=== PATIENT | female | born 1950 | race Caucasian/White ===

== ENCOUNTER → 2023-02-01 11:42 | Outpatient (CLI) | payer BC, SELFPAY ==
--- NOTE | ~2023-02-01 | US_ITS ---
Thyroid ultrasound. Clinical History: Thyroid nodule COMPARISON: 08/29/2018 Findings: Real-time sonography of the thyroid gland was performed. The right lobe measures 4.3 x 1.1 x 1.1 cm. The left lobe measures 4.3 x 1.4 x 1.0 cm. The isthmus is 3 mm in AP diameter. There is a 2 mm cystic nodule in the right thyroid lobe. There is a 1.8 x 1.0 x 1.4 cm hypoechoic circumscribed solid nodule at the left midpole. Impression: 1.8 cm TR-4 nodule in the left mid pole, increased in size since 08/29/2018. FNA recommended to establ kd a histologic diagnosis. Reviewed, dictated and finalized at location . Impression: 1.8 cm TR-4 nodule in the left mid pole, increased in size since 08/29/2018. FNA recommended to establish a histologic diagnosis.
== END ==
PROVIDERS: PCP Family Medicine; Visit Provider Nurse Practitioner Family
DX: E04.1 Nontoxic single thyroid nodule (principal)
CPT/HCPCS: 76536

== ENCOUNTER 2023-03-03 12:42 | Outpatient (CLI) | payer BC, SELFPAY ==
--- NOTE | ~2023-03-03 | US_ITS ---
EXAMINATION: US FNA w image guidance DATE: 03/03/2023 13:56 INDICATION: Left thyroid nodule TECHNIQUE: A time-out was performed to verify the patient's name, date of , and procedure to be performed . The procedure and its benefits and risks were discussed with the patient. Risks specifically discus sed included bleeding and infection. The patient understood the risks and agreed to proceed. The neck was prepped and draped in the usual sterile manner. 3 mL 1% lidocaine was used for local anesthesia . 6 passes were made with a 25G needle into the lesion. Appropriate needle location was documented with continuous sonographic guidance. A sterile bandage was applied. There were no immediate compli cations. FINDINGS: Grayscale ultrasound images demonstrate biopsy needles advanced into a 1.8 x 1.3 x 1.1 cm solid hypoe choic left thyroid nodule. IMPRESSION: 1. Successful ultrasound-guided fine needle aspiration of a 1.8 cm solid left thyroid nodule. Reviewed, dictated and finalized at location A.
== END 2023-03-03 12:43 | disposition home or self-care (01) ==
PROVIDERS: PCP Family Medicine; Visit Provider Nurse Practitioner Family
DX: E04.1 Nontoxic single thyroid nodule (principal)
CPT/HCPCS: 10005; 88173; 88305

== ENCOUNTER 2023-07-19 16:01 | Outpatient (CLI) | payer MEDICARE, SELFPAY ==
--- NOTE | ~2023-07-19 | XR_ITS ---
XR chest 2V DATE: 07/19/2023 16:29 INDICATION: Shortness of breath TECHNIQUE: PA and lateral views COMPARISON: None FINDINGS: Normal heart size. No hilar or mediastinal enlargement. No pulmonary infiltrate or consolid ation, pleural effusion or pulmonary vascular congestion or pneumothorax is detected. Mild thoracic aortic calcification and minimal unfolding. No hilar or mediastinal enlargement is evid ent. IMPRESSION: No active cardiopulmonary disease Aortic atherosclerosis Reviewed, dictated and finalized at location L. E SET UP OPERATOR
[2023-07-19 17:34] LABS: Basophils Absolute Auto 0.1 K/mm3 (0.0-0.1); Basophils Percent Auto 0.4 % (0.2-1.2); Eosinophils Absolute Auto 0.1 K/mm3 (0-0.3); Eosinophils Percent Auto 0.8 % (0-4.4); Hematocrit 46.7 % (37.0-47.0); Hemoglobin 15.2 g/dL (12.0-15.0); Immature Granulocyte Absolute 0.04 K/mm3 (0.00-0.031); Immature Granulocyte Percent A 0.3 % (0-0.5); Lymphocytes Absolute Auto 1.84 K/mm3 (0.9-3.2); Mean Corpuscular HGB Conc 32.5 g/dl (32-36); Mean Corpuscular Hemoglobin 30.2 pg (26-34); Mean Corpuscular Volume 92.8 fl (80-100); Mean Platelet Volume 11.1 fl (7.4-10.4); Monocytes Absolute Auto 1.1 K/mm3 (0.1-0.6); Monocytes Percent Auto 9.9 % (2.6-8.5); Neutrophils Absolute Auto 8.3 K/mm3 (1.3-6.7); Neutrophils Percent Auto 72.6 % (45.5-73.1); Platelet Count Result 192 k/mm3 (150-375); Red Blood Count 5.03 M/mm3 (4.2-5.4); Red Cell Distribution Width 12.5 % (11.5-14.5); White Blood Count 11.5 K/mm3 (4.5-10.0)
[2023-07-19 18:19] LABS: D Dimer 14.15 ug/mL (<0.48)
== END 2023-07-19 16:02 | disposition home or self-care (01) ==
PROVIDERS: PCP Family Medicine; Visit Provider Nurse Practitioner Family
DX: R06.02 Shortness of breath (principal); R00.0 Tachycardia, unspecified; I25.10 Atherosclerotic heart disease of native coronary artery without angina pectoris
CPT/HCPCS: 36415; 71046; 85025; 85380

== ENCOUNTER 2023-07-20 10:03 | Outpatient (CLI) | payer MEDICARE, SELFPAY ==
--- NOTE | ~2023-07-20 | CT_ITS ---
EXAMINATION: CTA chest PE protocol DATE: 07/20/2023 10:31 INDICATION: Shortness of breath TECHNIQUE: Computed tomography (CT) pulmonary angiogram of the chest was performed with 100 mL Omnipa que-350 intravenous contrast. Additional 3D reconstructions utilizing coronal maximum intensity proje ction (MIP) were performed. Automated exposure control and iterative reconstruction technique were em ployed. The dose-length product was 536.33 mGy-cm. COMPARISON: None FINDINGS: Central filling defect in the right main pulmonary artery which extend into the right upper, middle a nd lower lobar pulmonary arteries and multiple segmental and subsegmental branches. Additional pulmon madyson emboli extending between the left upper lobar, left lower lobar and lingular pulmonary arteries a nd multiple additional segmental and subsegmental pulmonary arteries. There is an enlargement of the central pulmonary arteries consistent with pulmonary arterial hypertension. The heart size is normal but with relative enlargement of the right atrium and ventricle but without evident leftward displace ment of the ventricular septum to suggest heart strain. Mild discoid atelectasis at the lingula. Smal l calcified left lower lobe nodule and a few calcified left hilar lymph nodes consistent with old gra nulomatous disease. No pneumonia, pulmonary edema or pleural effusion. No pericardial effusion. Thora cic aorta is normal in caliber with no dissection. No pathologically enlarged thoracic lymphadenopath y. Visualized portion of the upper abdomen is unremarkable. Moderate thoracic and lower lumbar spondy losis. IMPRESSION: 1. Extensive bilateral pulmonary emboli with relatively large clot burden involving all of the lobes of both lungs. 2. Enlargement central pulmonary arteries and relatively mild enlargement of the right atrium and sandy tricle likely secondary to the pulmonary emboli but without leftward bowing of the ventricular septum to suggest right heart strain. Reviewed, dictated and finalized at location A. T DESK ADMIN IMPRESSION: 1. Extensive bilateral pulmonary emboli with relatively large clot burden invol ving all of the lobes of both lungs. 2. Enlargement central pulmonary arteries and relatively mild enlargement of th e right atrium and ventricle likely secondary to the pulmonary emboli but witho ut leftward bowing of the ventricular septum to suggest right heart strain.
[2023-07-20 10:24] LABS: Estimated Glomerular Filt Rate 34
== END 2023-07-20 10:04 | disposition home or self-care (01) ==
LOC: ANHIMG 10:04
PROVIDERS: PCP Family Medicine; Visit Provider Nurse Practitioner Family
DX: R79.89 Other specified abnormal findings of blood chemistry (principal); R00.0 Tachycardia, unspecified; R06.02 Shortness of breath; I26.99 Other pulmonary embolism without acute cor pulmonale
CPT/HCPCS: 71275; Q9967

== ENCOUNTER 2023-07-20 11:36 | Emergency (ER) | payer MEDICARE, SELFPAY ==
[2023-07-20] VITALS (34 sets, daily range): BP systolic 110–184; BP diastolic 56–88; PULSE 91–118; RESP 19–34; TEMP 36.7; O2SAT 90–98
[2023-07-20 12:16] LABS: Basophils Percent Auto 0.3 % (0.2-1.2); Eosinophils Percent Auto 0.4 % (0-4.4); Hematocrit 42.2 % (37.0-47.0); Hemoglobin 13.7 g/dL (12.0-15.0); Immature Granulocyte Absolute 0.03 K/mm3 (0.00-0.031); Immature Granulocyte Percent A 0.3 % (0-0.5); Lymphocytes Absolute Auto 1.21 K/mm3 (0.9-3.2); Lymphocytes Percent Auto 10.9 % (18.3-44.2); Mean Corpuscular HGB Conc 32.5 g/dl (32-36); Mean Corpuscular Volume 92.5 fl (80-100); Mean Platelet Volume 11.3 fl (7.4-10.4); Monocytes Absolute Auto 1.1 K/mm3 (0.1-0.6); Monocytes Percent Auto 9.7 % (2.6-8.5); Neutrophils Absolute Auto 8.7 K/mm3 (1.3-6.7); Neutrophils Percent Auto 78.4 % (45.5-73.1); Red Blood Count 4.56 M/mm3 (4.2-5.4); Red Cell Distribution Width 12.5 % (11.5-14.5); White Blood Count 11.1 K/mm3 (4.5-10.0)
[2023-07-20] MEDS: HEPARIN SODIUM 5,000 UNITS/ML VIAL 7000 UNITS IV PUSH (12:18)
[2023-07-20 12:20] LABS: Platelet Count Result 148 k/mm3 (150-375)
[2023-07-20] MEDS: HEPARIN SOD/D5W 100 UNITS/ML 25,000 UNITS/250 ML BAG 15 UNITS IV CONT (12:20)
--- NOTE | 2023-07-20 12:23 | ECG_ITS ---
Measurements Intervals [place] Rate: 96 P: 74 NC: 162 QRS: 26 QRSD: 105 T: 66 QT: 351 QTc: 445 Interpretive Statements SINUS RHYTHM NORMAL ECG NO PREVIOUS ECG AVAILABLE FOR COMPARISON Electronically Signed On 07-20-2023 12:28:38 PRINCIPAL DATA ARCHITECT by Kevin Chavez D.O.
[2023-07-20 12:27] LABS: INR 1.1; Prothrombin Time 14.5 Seconds (11.1-14.7)
[2023-07-20 12:28] LABS: Partial Thromboplastin Time 31.5 SECONDS (22.3-36.8)
[2023-07-20 12:32] LABS: Alanine Aminotransferase 19 U/L (6-35); Albumin Level 3.9 g/dL (3.5-5.1); Alkaline Phosphatase 102 U/L (38-126); Anion Gap 12 mmol/L (8-16); Aspartate Amino Transferase 27 U/L (14-36); Bilirubin,Total 1.1 mg/dL (0.2-1.3); Blood Urea Nitrogen 14 mg/dL (7-17); Calcium 8.8 mg/dL (8.4-10.2); Carbon Dioxide 23 mmol/L (22-30); Chloride 100 mmol/L (98-107); Estimated CRCL calculation 49 ml/min; Estimated Glomerular Filt Rate 40; Glucose 117 mg/dL (65-110); Potassium 4.4 mmol/L (3.4-5.0); Sodium 135 mmol/L (137-145)
[2023-07-20 12:48] LABS: NT Pro B Type Natriuretic Pept 2390 pg/mL (19.9-100); Troponin I 0.116 ng/mL (0.000-0.034)
[2023-07-20 13:02] LABS: Influenza A QL RT-PCR Negative (Negative); Influenza B QL RT-PCR Negative (Negative); SARS-CoV-2 RNA PCR Negative (Negative)
--- NOTE | 2023-07-20 13:37 | ED.SOB ---
HPI - SOB/Dyspnea General Chief Complaint: Shortness of Breath/Dyspnea Stated Complaint: sent in, dx of PE Time Seen by Provider: 07/20/23 11:51 History of Present Illness HPI Narrative: patient is a 72-year-old female who presents ER with shortness of breath and diagnosis of pulmonary embolism. Patient has been having shortness of breath since 07/11/2023. Reports she has exertional dyspnea as well as some dyspnea at rest. She is to be able walk 5 miles and she no longer can. She denies any chest pain or pressure. She followed up with her PCP yesterday and outpatient labs showed elevated D-dimer. She had now patient PE study performed today which showed large clot burden and she was referred to the ER. Patient denies any long distance travel since February when she went [place]. She has had no new leg swelling or calf pain. No history of malignancy and no weight loss. She has not had a recent COVID diagnosis. Related Data Home Medications Medication Instructions Recorded Confirmed ascorbate calcium (vitamin C) 500 500 mg PO DAILY 01/19/23 07/19/23 mg tablet avvjjale-ekw-oxvum ac 400 tablet PO 01/19/23 07/19/23 mcg-calcium carb 500 mg-vit K1 20 mcg tablet (Women's 50 Plus Multivitamin) zinc acetate 25 mg (zinc) capsule 25 mg PO DAILY 01/19/23 07/19/23 Allergies Allergy/AdvReac Type Severity Reaction Status Date / Time No Known Allergies Allergy Verified 07/20/23 11:48 Review of Systems Review of Systems: All systems reviewed & are unremarkable except as noted in HPI and below Constitutional: Constitutional: Denies chills, Denies fatigue and Denies fever(s) ENT: Denies nasal congestion and Denies sore throat Cardiovascular: Cardiovascular: Denies chest pain, Denies rapid heart rate and Denies radiating jaw, neck or arm pain Respiratory: Respiratory: Denies cough, Reports dyspnea and Denies wheezing Gastrointestinal: Gastrointestinal: Reports no additional gastrointestinal complaints Musculoskeletal: Musculoskeletal: Reports no additional musculoskeletal complaints Neurologic: Reports system reviewed and no additional complaints, except as documented [facility] Past Medical History Medical History (Updated 07/20/23 @ 13:42 by Giacomo Sellers MD) Hypertension Low kidney function Thyroid nodule Surgical History Surgical History (Updated 07/20/23 @ 13:40 by Giacomo Sellers MD) No pertinent past surgical history Social History Social History Smoking status: Never smoker Second hand tobacco smoke exposure: No Alcohol intake: current Substance use: never Lack of Transportation: No Lack of Food: Never True Current Housing: I Have Housing Concerned About Future Housing: No Difficulty Paying Gas/Electric Bills: No Difficulty Paying for Meds: No Currently Unemployed: No Education: Bachelor's Degree Difficulty w/ Childcare or Family Care: No Living arrangements: with family Occupation/Education: retired Gender identity (if verbalized by the patient): Female Exam Narrative: GENERAL: Well-appearing, well-nourished, and in no acute distress. HEAD: Normocephalic, atraumatic. ENT: Mucous membranes moist. NECK: Supple. CHEST: Clear to auscultation. No respiratory distress. HEART: Regular rate and rhythm. Normal peripheral pulses. ABDOMEN: Soft, nontender, nondistended. EXTREMITIES: Normal range of motion. No edema. SKIN: Warm, dry, no rash. NEURO: Alert and oriented x3. PSYCH: Normal mood and affect. Course Course Emergency Course: Patient resting comfortably. Started on IV heparin. Discussed case with hospitalist and there was concern patient could need thrombectomy. After discussing this with [facility] patient has been accepted to the medical ICU by Dr. Crockett. patient where diagnosis and treatment plan. Vital Signs Vital signs: Vital Signs Temperature 98
[2023-07-20 15:52] LABS: Troponin I 0.122 ng/mL (0.000-0.034)
--- NOTE | 2023-07-20 18:38 | ECG_ITS ---
Measurements Intervals [place] Rate: 92 P: 74 [place]: 159 QRS: 19 QRSD: 102 T: 66 QT: 354 QTc: 439 Interpretive Statements SINUS RHYTHM NORMAL ECG COMPARED TO ECG 07/20/2023 12:26:37 NO SIGNIFICANT CHANGES Electronically Signed On 07-21-2023 6:39:25 MANUFACTURING ENGINEER by Kevin Chavez D.O.
[2023-07-20 18:40] LABS: INR 1.2; Prothrombin Time 16.2 Seconds (11.1-14.7)
[2023-07-20 18:58] LABS: Troponin I 0.112 ng/mL (0.000-0.034)
[2023-07-20 19:12] LABS: Partial Thromboplastin Time > 200.0 SECONDS (22.3-36.8)
== END 2023-07-20 19:30 | disposition short-term general hospital (02) ==
PROVIDERS: Emergency Provider Emergency Medicine; PCP Family Medicine
DX: I26.99 Other pulmonary embolism without acute cor pulmonale (principal); R09.02 Hypoxemia; R06.02 Shortness of breath; Z20.822 Contact with and (suspected) exposure to COVID-19; I10 Essential (primary) hypertension
CPT/HCPCS: 36415; 71275; 80053; 83880; 84484; 85025; 85055; 85610; 85730; 87636; 93005; 96365; 96366; 99291; J1644; Q9967

== ENCOUNTER 2023-11-16 14:18 | Outpatient (CLI) | payer MEDICARE, SELFPAY ==
[2023-11-16 16:54] LABS: D Dimer < 0.27 ug/mL (<0.48)
== END 2023-11-16 14:19 | disposition home or self-care (01) ==
LOC: ANHLAB 14:21
PROVIDERS: PCP Family Medicine; Visit Provider Internal Medicine Hematology & Oncology
DX: I26.99 Other pulmonary embolism without acute cor pulmonale (principal)
CPT/HCPCS: 36415; 85380

== ENCOUNTER 2023-12-01 09:35 | Outpatient (CLI) | payer MEDICARE, SELFPAY ==
[2023-12-03 23:38] LABS: Antithrombin III Activity 122 % normal (80-135)
[2023-12-05 09:49] LABS: Homocysteine 14.7 umol/L (<10.4)
[2023-12-05 11:13] LABS: Lupus dRVVT Screen 41 sec (< OR = 45); PTT-LA Screen 37 sec (< OR = 40)
== END 2023-12-01 09:36 | disposition home or self-care (01) ==
LOC: ANHLAB 09:39
PROVIDERS: PCP Family Medicine; Visit Provider Internal Medicine Hematology & Oncology
DX: I26.99 Other pulmonary embolism without acute cor pulmonale (principal); D68.61 Antiphospholipid syndrome
CPT/HCPCS: 36415; 83090; 85300; 85303; 85306; 85613; 85730; 86146

== ENCOUNTER 2024-03-12 09:58 | Outpatient (CLI) | payer MEDICARE, SELFPAY ==
--- NOTE | ~2024-03-12 | MM_ITS ---
EXAMINATION: MM screening martha BI w nichol HISTORY: Screening TECHNIQUE: Craniocaudal and mediolateral oblique 3-D tomosynthesis images were obtained and synthetic 2-D images were generated. CAD analysis was submitted and interpreted. COMPARISON: No prior mammogram is available for comparison at this institution. BREAST PARENCHYMAL COMPOSITION: Not dense: There are scattered areas of fibroglandular density. FINDINGS: There are bilateral nodular asymmetries centered in the upper outer quadrant of both breast s. There are no suspicious calcifications. IMPRESSION: 1. Bilateral nodular asymmetries. 2. Additional mammographic views and possible breast ultrasound are recommended. BI-RADS Category 0: Incomplete: Needs additional imaging evaluation. Reviewed, dictated and finalized at location B. IMPRESSION: 1. Bilateral nodular asymmetries. 2. Additional mammographic views and possible breast ultrasound are recommended . BI-RADS Category 0: Incomplete: Needs additional imaging evaluation.
== END 2024-03-12 09:59 | disposition home or self-care (01) ==
LOC: ANHIMG 09:59
PROVIDERS: PCP Family Medicine; Visit Provider Internal Medicine Hematology & Oncology
DX: Z12.31 Encounter for screening mammogram for malignant neoplasm of breast (principal); R92.8 Other abnormal and inconclusive findings on diagnostic imaging of breast
CPT/HCPCS: 77063; 77067

== ENCOUNTER 2024-03-29 09:11 | Outpatient (CLI) | payer MEDICARE, SELFPAY ==
--- NOTE | ~2024-03-29 | MM_ITS ---
EXAMINATION: MM diagnostic martha BI w nichol HISTORY: Questionable bilateral upper outer nodular opacities TECHNIQUE: Additional 3-D tomosynthesis spot compression images of the bilateral upper outer quadrant s were performed and synthetic 2-D images were generated. CAD analysis was submitted and interpreted. COMPARISON: 03/12/2024 BREAST PARENCHYMAL COMPOSITION: There are scattered areas of fibroglandular density. FINDINGS: No persistent mass lesion or distortion seen in the areas of spinal compression. No suspici ous microcalcification. IMPRESSION: No mammographic evidence for malignancy. BI-RADS Category 1: Negative Reviewed, dictated and finalized at location .
== END 2024-03-29 09:12 | disposition home or self-care (01) ==
LOC: ANHIMG 09:13
PROVIDERS: PCP Family Medicine; Visit Provider Internal Medicine Hematology & Oncology
DX: R92.8 Other abnormal and inconclusive findings on diagnostic imaging of breast (principal)
CPT/HCPCS: 77062; 77066; G0279

== ENCOUNTER 2024-04-10 13:24 | Outpatient (CLI) | payer MEDICARE, SELFPAY ==
[2024-04-10 13:41] LABS: Hematocrit 37.9 % (37.0-47.0); Hemoglobin 12.6 g/dL (12.0-15.0); Mean Corpuscular HGB Conc 33.2 g/dl (32-36); Mean Corpuscular Hemoglobin 31.1 pg (26-34); Mean Corpuscular Volume 93.6 fl (80-100); Mean Platelet Volume 10.1 fl (7.4-10.4); Platelet Count Result 203 k/mm3 (150-375); Red Blood Count 4.05 M/mm3 (4.2-5.4); Red Cell Distribution Width 12.7 % (11.5-14.5); White Blood Count 7.8 K/mm3 (4.5-10.0)
== END 2024-04-10 13:25 | disposition home or self-care (01) ==
PROVIDERS: PCP Family Medicine; Visit Provider Internal Medicine Hematology & Oncology
DX: I26.99 Other pulmonary embolism without acute cor pulmonale (principal)
CPT/HCPCS: 36415; 85027

== ENCOUNTER 2024-10-01 13:17 | Outpatient (CLI) | payer MEDICARE, SELFPAY ==
[2024-10-01 13:35] LABS: Basophils Percent Auto 0.3 % (0.2-1.2); Eosinophils Absolute Auto 0.2 K/mm3 (0-0.3); Eosinophils Percent Auto 2.5 % (0-4.4); Hematocrit 37.9 % (37.0-47.0); Hemoglobin 12.9 g/dL (12.0-15.0); Immature Granulocyte Absolute 0.02 K/mm3 (0.00-0.031); Immature Granulocyte Percent A 0.3 % (0-0.5); Lymphocytes Absolute Auto 1.74 K/mm3 (0.9-3.2); Lymphocytes Percent Auto 29.1 % (18.3-44.2); Mean Corpuscular Hemoglobin 31.5 pg (26-34); Mean Corpuscular Volume 92.4 fl (80-100); Mean Platelet Volume 10.2 fl (7.4-10.4); Monocytes Absolute Auto 0.7 K/mm3 (0.1-0.6); Monocytes Percent Auto 10.9 % (2.6-8.5); Neutrophils Absolute Auto 3.4 K/mm3 (1.3-6.7); Neutrophils Percent Auto 56.9 % (45.5-73.1); Platelet Count Result 197 k/mm3 (150-375); Red Cell Distribution Width 12.9 % (11.5-14.5)
--- OUTSIDE RECORDS SUMMARY | 2024-10-01 15:49 | XMS_ITS | Clinical Summary ---
Author Organization [facility] Jonathan ortiz Saleem Address [address] [place] [address] Care Team Providers Care Gis Programmer Name Role Phone Asael Casarez MD Primary Care Provider [phone] Allergies No known active allergies Medications amLODIPine-oniel zepril (LOTREL) 10-20 mg capsule Take 1 Capsule by mouth daily. Active cyanocobalamin (VITAMIN B-12) 50 mcg Tablet Take 50 mcg by mouth daily. Active folic acid (FOLVITE) 1 mg tablet Take 1 Tablet (1 mg) by mouth daily. 90 Tablet 2 04/10/2024 Active Eliquis 5 mg tablet TAKE 1 TABLET(5 MG) BY MOUTH TWICE DAILY 60 Tablet 2 07/09/2024 Active Active Problems No known active problems Encounters Date Type Department Care Team Description 09/22/2024 External Device Data STL ABSTRACTION Provider, Abstract 09/22/2024 External Device Data STL ABSTRACTION Provider, Abstract 09/19/2024 External Device Data STL ABSTRACTION Provider, Abstract 09/05/2024 External Device Data STL ABSTRACTION Provider, Abstract 08/15/2024 External Device Data STL ABSTRACTION Provider, Abstract 08/09/2024 External Device Data STL ABSTRACTION Provider, Abstract 08/08/2024 Telephone [facility] Oncology and Hematology [facility] [address] [place] [address] Pietro Rosenbaum MD Urinary Pain 07/08/2024 Refill [facility] Oncology and Hematology [place] [address] [place] [address] Pietro Rosenbaum MD from Last 3 Months Family History Medical History Relation Name Comments Familial Adenomatous Polyposis Father Familial Adenomatous Polyposis Sister 1 Familial Adenomatous Polyposis Sister 2 Familial Adenomatous Polyposis Sister 3 Relation Name Status Comments Daughter Alive Father Mother Sister 1 Alive Sister 2 Alive Sister 3 Son Alive Social History Tobacco Use Types Packs/Day Years Used Date Smoking Tobacco: Never Smokeless Tobacco: Never Alcohol Use Standard Drinks/Week Comments Yes 0 (1 standard drink = 0.6 oz pur e alcohol) rarely Comments Unknown Sex and Gender Information Value Date Recorded Sex Assigned at Not on file Legal Sex Female 10:51 AM CDT Gender Identity Not on file Sexual Orientation Not on file Last Filed Vital Signs Vital Sign Reading Time Taken Comments Blood Pressure 176/82 04/10/2024 1:55 PM CDT Pulse 75 04/10/2024 1:51 PM CDT Temperature 36.5 C (97.7 F) 04/10/2024 1:51 PM CDT Respiratory Rate 15 04/10/2024 1:51 PM CDT Oxygen Saturation 94% 04/10/2024 1:51 PM CDT Inhaled Oxygen Concentration - - Weight 105 kg (231 lb 6.4 oz) 04/10/2024 1:51 PM CDT Height 177.8 cm (5' 10 ) 11/16/2023 1:24 PM CDT Body Mass Index 33.2 11/16/2023 1:24 PM CDT Plan of Treatment Upcoming Encounters Date Type Department Care Team (Late st Contact Info) Description 10/08/2024 2:15 PM CDT Office Visit [facility] Oncology and Hematology - [place] [address] [facility] [address] [place] [address] Pietro Rosenbaum MD [address] [facility] [address] [place] [address] Health Maintenance Due Date Last Done Comments DTAP/TDAP/TD VACCINES (1 - Tdap) 10/20/1971 Traditional Medicare (ACO) A nnual Wellness Visit 10/20/1971 COLORECTAL SCREENING 1997 Colorectal Cancer Screening 1997 FIT-DNA Q 3 years 1997 FIT/FOBT Q 1 year 1997 Flex Sig/CT Colonography Q 5 years 1997 PNEUMOCOCCAL VACCINE 50+ YEA RS (1 of 1 - PCV) 2002 ZOSTER VACCINE (1 of 2) 2002 OSTEOPOROSIS SCREENING 2017 INFLUENZA VACCINE (#1) 2024 BREAST CANCER SCREENING 03/29/2025 03/29/2024, 03/12 RSV VACCINE (60+ or ) (1 - 1-dose 75+ series) 10/20/2027 Procedures Procedure Name Priority Date/Time Associated Diagnosis Comments MAMMO BILAT DIAGNOSTIC Routine 03/29/2024 11:15 AM CDT from Last 3 Months or Most Recently Relevant to Health Maintenance Results * MAMMO BILAT DIAGNOSTIC (03/29/2024 11:15 AM CDT) Anatomical Region Laterality Modality Breast Bilateral Other Pietro Rosenbaum MD MAMMO ORDERABLES Final Result from Last 3 Months or Most Recently Relevant to Health Maintenance Insurance MEDICARE PART A AND B [employer] Care Teams Gis Programmer Relationship Specialty Start Date End Date Asael Casarez MD [address] [place] [id number] PCP - General Family Practice 10/28/23
--- OUTSIDE RECORDS SUMMARY | 2024-10-01 15:49 | XMS_ITS | Patient Health Summary ---
Author Organization [facility] Address [address] [place] [address] Care Team Providers Care Taxi Driver Name Role Phone Unknown, Provider Primary Care Provider Unavaila ble Note from [facility],non-owned Affiliates and Associated Physician Practices is amultiple site organization consisting of ambulatory clinics and hospital sitesin [place], [place], [place] and [place]. This disclosure is being madepursuant to the Care Everywhere program and may not contain all information available regarding this patient. Last updated 18.[facility] [employer] Allergies No known active allergies Medications * Be aware that medications may not be up to date on this document. Alwaysverify current medications with the patient. * amLODIPine-benazepril (Lotrel) 10-20 MG capsule(Started 06/22/2023) Take 1 (one) capsule by mouth once daily * apixaban (Eliquis) 5 MG tablet(Started 09/23/2023) Take 1 (one) tablet by mouth 2 times daily for 90 days * folic acid (Folvite) 1 MG tablet(Started 12/14/2023) Take 1 (one) tablet by mouth once daily Active Problems Problem Noted Date Diagnosed Date Elevated serum creatinine 07/21/2023 Acute pulmonary embolism with acute cor pulmonal e 07/21/2023 Acute deep vein thrombosis (DVT) of peroneal vei n 07/21/2023 INOCENCIA (acute kidney injury) 07/21/2023 Subacute massive pulmonary embolism 07/20/2023 HTN (hypertension) 07/20/2023 Family history of familial adenomatous polyposis 07/20/2023 Thrombocytopenia 07/20/2023 Social History Tobacco Use Types Packs/Day Years Used Date Smoking Tobacco: Never Smokeless Tobacco: Never Tobacco Cessation:Counseling Given: Not Answered Alcohol Use Standard Drinks/Week Comments Not Currently 0 (1 standard drink = 0.6 oz pur e alcohol) none for 2 months AUDIT-C Answer Date Recorded Q1: How often do you have a drink containing alcohol? Never 07/21/2023 Q2: How many drinks containi ng alcohol do you have on a typical day when you are drinking? Patient does not drink Q3: How often do you have si x or more drinks on one occasion? Never 07/21/2023 Overall Financial Resource Strain (CARDIA) Answe r Date Recorded How hard is it for you to pa y for the very basics like food, housing, medical care, and heating? Not hard at all 07/21/2023 [facility] [place] of Occupat ional Health - Occupational Stress Questionnaire Answer Date Recorded Do you feel stress - tense, restless, nervous, or anxious, or unable to sleep at night because your mind is troubled all the time - these days? Not at all 07/21/2023 Hunger Vital Sign Answer Date Recorded Within the past 12 months, y ou worried that your food would run out before you got the money to buy more. Never true 07/21/19 24 Within the past 12 months, t he food you bought just didn't last and you didn't have money to get more. Never true 07/21/2023 PRAPARE - Transportation Answer Date Re corded In the past 12 months, has l ack of transportation kept you from medical appointments or from getting medications? No 10/2023 In the past 12 months, has l ack of transportation kept you from meetings, work, or from getting things needed for daily living? No 07/21/2023 Housing Stability Vital Sign Answer Bigg e Recorded In the last 12 months, was t here a time when you were not able to pay the mortgage or rent on time? No 07/21/2023 In the last 12 months, how many places have you lived? 1 07/21/2023 In the last 12 months, was t here a time when you did not have a steady place to sleep or slept in a [place] (including now)? No 07/21/2023 Sex and Gender Information Value Date Recorded Sex Assigned at Not on file Gender Identity Not on file Sexual Orientation Not on file Last Filed Vital Signs Vital Sign Reading Time Taken Comments Blood Pressure 147/85 08/31/2024 11:05 AM [employer]IUM ASSOCIATION MANAGER Pulse 81 08/31/2024 11:05 AM CONDOM[employer]IUM ASSOCIATION MANAGER Temperature 36.7 C (98.1 F) 09/23/2023 9:41 AM CONDOMINIUM ASSOCIATION MANAGER Respiratory Rate 17 08/31/2024 11:0 5 AM CONDOMINIUM ASSOCIATION MANAGER Oxygen Saturation 98% 08/31/2024 11: 05 AM CONDOMINIUM ASSOCIATION MANAGER Inhaled Oxygen Concentration - - Weight 107.3 kg (236 lb 9.6 oz) 025 11:05 AM CONDOMINIUM ASSOCIATION MANAGER Height 177.8 cm (5' 10 ) 08/31/2024 11: 05 AM CONDOMINIUM ASSOCIATION MANAGER Body Mass Index 33.95 08/31/2024 11:05 AM CONDOMINIUM ASSOCIATION MANAGER Procedures * VAS BILATERAL VENOUS DUPLEX LE(Performed 09/24/2024) Performed for Acute deep vein thrombosis (DVT) of right peroneal vein (HCC) * SIX MINUTE WALK(Performed 08/13/2024) Performed for History of pulmonary embolism * VAS BILATERAL VENOUS DUPLEX LE(Performed 10/12/2023) Performed for Acute deep vein thrombosis (DVT) of right peroneal vein (HCC), Other acute pulmonary embolism with acute cor pulmonale (HCC), Subacute massive pulmonary embolism (HCC) * ECHO COMPLETE(Performed 09/23/2023) Performed for Other acute pulmonary embolism with acute cor pulmonale (HCC) * BASIC METABOLIC PANEL (CALCIUM TOTAL)(Performed 07/23/2023) * CBC W AUTO DIFFERENTIAL(Performed 07/23/2023) * PHOSPHORUS BLOOD(Performed 07/23/2023) * MAGNESIUM BLOOD(Performed 07/23/2023) * PT EVAL AND TREAT(Performed 07/22/2023) * BASIC METABOLIC PANEL (CALCIUM TOTAL)(Performed 07/22/2023) * CBC W AUTO DIFFERENTIAL(Performed 07/22/2023) * PHOSPHORUS BLOOD(Performed 07/22/2023) * MAGNESIUM BLOOD(Performed 07/22/2023) * TROPONIN-I HIGH SENSITIVE(Performed 07/21/2023) * EKG 12-LEAD(Performed 07/21/2023) Performed for Subacute massive pulmonary embolism (HCC) * VAS BILATERAL VENOUS DUPLEX LE(Performed 07/21/2023) Performed for Subacute massive pulmonary embolism (HCC) * ECHO COMPLETE W CONTRAST W BUBBLE STUDY(Performed 07/21/2023) Performed for Subacute massive pulmonary embolism (HCC) * TROPONIN-I HIGH SENSITIVE(Performed 07/21/2023) * BASIC METABOLIC PANEL (CALCIUM TOTAL)(Performed 07/21/2023) * CBC W AUTO DIFFERENTIAL(Performed 07/21/2023) * PHOSPHORUS BLOOD(Performed 07/21/2023) * MAGNESIUM BLOOD(Performed 07/21/2023) * ACT LR - POCT ([facility])(Performed 07/21/2023) * ACT LR - POCT ([facility])(Performed 07/21/2023) * IR TRANSLUM THROMBECTOMY VENOUS(Performed 07/20/2023) Performed for Subacute massive pulmonary embolism (HCC) * LACTIC ACID BLOOD(Performed 07/20/2023) Performed for Subacute massive pulmonary embolism (HCC) * B-TYPE NATRIURETIC PEPTIDE(Performed 07/20/2023) Performed for Subacute massive pulmonary embolism (HCC) * TROPONIN-I HIGH SENSITIVE(Performed 07/20/2023) Performed for Subacute massive pulmonary embolism (HCC) * PTT [facility](Performed 07/20/2023) * PT-INR [facility](Performed 07/20/2023) * COMPREHENSIVE METABOLIC PANEL(Performed 07/20/2023) * PHOSPHORUS BLOOD(Performed 07/20/2023) * MAGNESIUM BLOOD(Performed 07/20/2023) * CBC W AUTO DIFFERENTIAL(Performed 07/20/2023) Results * VAS Bilateral Venous Duplex Le (09/24/2024 3:35 PM CDT) Only the most recent of3 resultswithin the time period is included. Anatomical Region Laterality Modality Lower Extremity Intravascular Ul trasound 09/24/2024 3:12 PM CDT Narrative Procedure Note Jayjay Lucero MD - 09/25/2024 Jose Dominguez MD VASCULAR LAB ORDERAB LES * Six Minute Walk Test [facility] PFT Lab (08/13/2024 4:47 PM CONDOMINIUM ASSOCIATION MANAGER) Impressions Yeni Wiseman MD - 08/13/2024 4:47 PM CONDOM[employer]IUM ASSOCIATION MANAGER [facility] DEPARTMENT OF PULMONARY, CRITICAL CARE, AND SLEEP MEDICINE SIX MINUTE WALK TEST Carolina López 08/14/2024 Interpretation: The patient walked for 6 minutes and covered total distance of 465 meters. On the Cherelle scale at baseline, reported dyspnea was 0 and fatigue was 0. At the end of the study, the Cherelle reported dyspnea was 0 and fatigue was 0. There were no additional symptoms reported and oxygen saturation remained above 94% throughout the test. IMPRESSION: 1. Total 6 minute walk distance is 465 meters, which is above the lower limit of normal of 249 meters for this patient. 2. There is no available study for comparison. Sean Garcia MD Pulmonary & Critical Care Fellow Division of Pulmonary, Critical Care, and Sleep Medicine [facility] I have personally reviewed pulmonary function test data and finding. I concur with fellow's note. Yeni Wiseman MD Jorje Crockett MD RESPIRATORY THE RAPY ORDERABLES * ECHO COMPLETE (09/23/2023 9:35 AM CON[employer]IUM ASSOCIATION MANAGER) Only the most recent of2 resultswithin the time period is included. BSA 2.31 m2 SSM CV FUJ I PACS LV biplane EF 70 54 - 74 % SSM CV FUJI PACS RVSP 37.0 mmHg SSM CV FUJ I PACS RAP 3.0 mmHg SSM CV FUJ I PACS TR pk grad 34 mmHg SSM CV FU JI PACS Anatomical Region Laterality Modality Ultrasound Narrative 09/23/2023 10:13 AM CON[employer]IUM ASSOCIATION MANAGER Left Ventricle: Left ventricle size is normal. Increased wall thickness. Ventricular mass is normal. Findings consistent with concentric remodeling. Normal systolic function. EF by 2D Graves biplane is 70%. Normal wall motion. Diastolic function is indeterminate. Tricuspid Valve: Mild regurgitation. The pulmonary artery systolic pressure is mildly elevated. Estimated RVSP is 37.0 mmHg. Right Atrium: Right atrium is mildly dilated. Left Ventricle Left ventricle size is normal. Increased wall thickness. Ventricular mass is normal. Findings consistent with concentric remodeling. Normal systolic function. EF by 2D Graves biplane is 70%. Normal wall motion. Diastolic function is indeterminate. Right Ventricle Right ventricle size is normal. Normal systolic function. Left Atrium Left atrium size is normal. Right Atrium Right atrium is mildly dilated. IVC/SVC IVC diameter is less than or equal to 21 mm and decreases greater than 50% during inspiration; therefore the estimated right atrial pressure is normal (~3 mmHg). Mitral Valve Valve structure is normal. Trace regurgitation. No stenosis. Tricuspid Valve Valve structure is normal. Mild regurgitation. The pulmonary artery systolic pressure is mildly elevated. Estimated RVSP is 37.0 mmHg. No stenosis. Aortic Valve Valve structure is trileaflet. Mild regurgitation. No stenosis. Pulmonic Valve Not well visualized. No regurgitation. No stenosis. Ascending Aorta Normal sized sinus of Valsalva (aortic root). Pericardium No pericardial effusion. Study Details Study quality was adequate. A complete 2D, color Doppler, spectral Doppler and M-mode echocardiogram was performed. The apical, parasternal and subcostal views were obtained. Patient exhibited sinus rhythm. Prior Study Prior TTE study available for comparison. Prior study date: 07/21/2023. Mary Dumont MD ECHO CUPID * (ABNORMAL) CBC W AUTO DIFFERENTIAL (07/23/2023 5:17 AM [facility]) Only the most recent of4 resultswithin the time period is included. WBC 4.6 4.0 - 10.7 x10E9/L 07/23/2023 5:38 AM [facility] RBC Count 3.85(L) 3.90 - 5.20 x10E12/L 07/23/2023 5:38 AM [facility] Hemoglobin 11.7(L) 11.9 - 15.8 g/dL 07/23/2023 5:38 AM [facility] Hematocrit 34.1(L) 34.8 - 46.1 % 07/23/2023 5:38 AM [facility] MCV 88.6 80.0 - 98.0 fL 07/23/2023 5:38 AM [facility] MCH 30.4 26.7 - 33.6 pg 07/23/2023 5:38 AM [facility] MCHC 34.3 31.7 - 36.3 g/dL 07/23/2023 5:38 AM [facility] RDW-CV 12.2 11.3 - 14.8 % 07/23/2023 5:38 AM [facility] Platelet Count 158 150 - 420 x10E9/L 07/23/2023 5:38 AM [facility] MPV 11.5(H) 7.8 - 11.4 fL 07/23/2023 5:38 AM [facility] Neutrophil % 61.4 41.0 - 74.0 % 07/23/2023 5:38 AM [facility] Lymphocyte % 22.0 17.0 - 47.0 % 07/23/2023 5:38 AM [facility] Monocyte % 10.7 3.0 - 11.0 % 07/23/2023 5:38 AM [facility] Eosinophil % 5.2 0.0 - 7.0 % 07/23/2023 5:38 AM [facility] Basophil % 0.7 0.0 - 1.6 % 07/23/2023 5:38 AM [facility] Immature Granulocytes % 0.0 0.0 - 1.0 % 07/23/2023 5:38 AM [facility] Neutrophil Absolute 2.83 1.60 - 7.50 x10E9/L 07/23/2023 5:38 AM [facility] Lymphocyte Absolute 1.01 1.00 - 4.40 x10E9/L 07/23/2023 5:38 AM [facility] Monocyte Absolute 0.49 0.15 - 1.00 x10E9/L 07/23/2023 5:38 AM [facility] Eosinophil Absolute 0.24 0.00 - 0.60 x10E9/L 07/23/2023 5:38 AM [facility] Basophil Absolute 0.03 0.00 - 0.13 x10E9/L 07/23/2023 5:38 AM [facility] Blood BLOOD SPECIMEN / Unknown Venipuncture / Unknown 07/23/2023 5:17 AM [employer] ASSOCIATION MANAGER 07/23/2023 5:28 AM [facility] Jorje Crockett MD LAB - HEMATOLOG Y ORDERABLES [facility] [address] [place] [address], [facility] [phone] * (ABNORMAL) BASIC METABOLIC PANEL (CALCIUM TOTAL) (07/23/2023 5:17 AM CON[employer] ASSOCIATION MANAGER) Only the most recent of3 resultswithin the time period is included. BUN 16 7 - 26 mg/dL 07/23/2023 6:00 AM [facility] Creatinine 0.94 0.56 - 0.96 mg/dL 07/23/2023 6:00 AM [facility] Sodium 137 136 - 145 mmol/L 07/23/2023 6:00 AM [facility] Potassium 4.8(H) 3.5 - 4.5 mmol/L 07/23/2023 6:00 AM [facility] Chloride 107 98 - 107 mmol/L 07/23/2023 6:00 AM [facility] CO2 25 22 - 29 mmol/L 07/23/2023 6:00 AM [facility] Glucose 101 70 - 115 mg/dL 07/23/2023 6:00 AM [facility] Calcium 8.7 8.4 - 10.2 mg/dL 07/23/2023 6:00 AM [facility] Anion Gap 5(L) 6 - 16 07/23/2023 6:00 AM [facility] BUN/Creatinine Ratio 17 7 - 23 07/23/2023 6:00 AM [facility] Osmolality Calculated 285 275 - 295 mOsm/kg 07/23/2023 6:00 AM [facility] eGFR by CKD-EPI 65(L) >=90 mL/min/1.7 3 m2 07/23/2023 6:00 AM [facility] Blood BLOOD SPECIMEN / Unknown Venipuncture / Unknown 07/23/2023 5:17 AM [employer] ASSOCIATION MANAGER 07/23/2023 5:29 AM [facility] Jorje Crockett MD LAB - CHEMISTRY ORDERABLES [facility] [address] [place] [address], [facility] [phone] * PHOSPHORUS BLOOD (07/23/2023 5:17 AM CON[employer] ASSOCIATION MANAGER) Only the most recent of4 resultswithin the time period is included. Phosphorus 3.1 2.9 - 5.1 mg/dL 07/23/2023 6:00 AM CON[employer]UM ASSOCIATION MANAGER [facility] Blood BLOOD SPECIMEN / Unknown Venipuncture / Unknown 07/23/2023 5:17 AM CON[employer] ASSOCIATION MANAGER 07/23/2023 5:29 AM [employer] ASSOCIATION MANAGER Jorje Crockett MD LAB - CHEMISTRY ORDERABLES Performing Organization Address City/[facility]/ZIP Co de Phone Number [address] [address], [facility] [phone] * MAGNESIUM BLOOD (07/23/2023 5:17 AM CON[employer] ASSOCIATION MANAGER) Only the most recent of4 resultswithin the time period is included. Magnesium 2.1 1.6 - 2.6 mg/dL 07/23/2023 6:00 AM CON[employer]IUM ASSOCIATION MANAGER [facility] Blood BLOOD SPECIMEN / Unknown Venipuncture / Unknown 07/23/2023 5:17 AM CON[employer] ASSOCIATION MANAGER 07/23/2023 5:29 AM [employer] ASSOCIATION MANAGER Jorje Crockett MD LAB - CHEMISTRY ORDERABLES Performing Organization Address [facility] Co de Phone Number [address] [address], [facility] [phone] * (ABNORMAL) TROPONIN-I HIGH SENSITIVE (07/21/2023 1:18 PM CON[employer] ASSOCIATION MANAGER) Only the most recent of3 resultswithin the time period is included. Troponin I High Sensitive 195(H) <=14 ng/L 07/21/2023 2:02 PM CON[employer]UM ASSOCIATION MANAGER [facility] Blood BLOOD SPECIMEN / Unknown Venipuncture / Unknown 07/21/2023 1:18 PM CON[employer]IUM ASSOCIATION MANAGER 07/21/2023 1:26 PM [employer] ASSOCIATION MANAGER Jorje Crockett MD LAB - CHEMISTRY ORDERABLES Performing Organization Address City/[facility]/ZIP Co de Phone Number [address] [address], [facility] [phone] * EKG 12-LEAD (07/21/2023 12:49 PM CON[employer] ASSOCIATION MANAGER) Ventricular Rate 78 BPM SL MUSE Atrial Rate 78 BPM [facility] MUSE P-R Interval 172 ms [facility] MUSE QRS Duration ms 90 ms [facility] MUSE Q-T Interval ms 378 ms [facility] MUSE QTC Calculation (Bezet) 430 ms SL MUSE Calculated P [place] 54 degrees SL MUSE Calculated R [place] 18 degrees [facility] MUSE Calculated T [place] 53 degrees [facility] MUSE Interpretation EKG NORMAL SINUS RHYTHM NORMAL ECG Confirmed by MD OSMAR, FLETCHER ([id number]) on 08/03/2023 2:02:09 PM [facility] MUSE 07/21/2023 12:4 9 PM [employer]OCIATION MANAGER 08/03/2023 2:02 PM [employer] ASSOCIATION MANAGER Jorje Crockett MD ECG ORDERABLES Performing Organization Address [facility] Co de Phone Number [facility] MUSE * ACT LR - POCT ([facility]) (07/21/2023 12:33 AM CON[employer]IUM ASSOCIATION MANAGER) Only the most recent of2 resultswithin the time period is included. ACT LR 225 See result comments sec 07/21/2023 7:16 AM [facility] Blood BLOOD SPECIMEN / Unknown 07/21/2023 12:33 AM CON[employer] ASSOCIATION MANAGER 07/21/2023 7:16 AM CON[employer]UM ASSOCIATION MANAGER Narrative [facility] - 07/21/2023 7:16 AM CON[employer]IUM ASSOCIATION MANAGER ACT-LR [employer]rapeutics ranges are: Cardiac grinding and polishing laborer = 200-300 seconds Sheath pull = ACT less than 170 seconds EPS lab = 200-240 seconds Sheath pull = ACT less than 140 seconds Radiology : CT/Angio lab = 200-300 seconds Sheath pull = ACT less than 200 seconds Expected range of normal volunteers: ACT-LR = 113-149 seconds Expected range of a Non-heparin patients: ACT-LR = 89-169 seconds From established ranges from the company manual Jorje Crockett MD LAB - COAGULATI ON ORDERABLES [facility] [address] [place] [address], [facility] [phone] * IR TRANSLUM THROMBECTOMY VENOUS (07/20/2023 11:49 PM CON[employer]UM ASSOCIATION MANAGER) Anatomical Region Laterality Modality Lower Extremity, Upper Extremity X-Ray Angiography 07/21/2023 1:32 AM [employer] ASSOCIATION MANAGER Impressions 07/22/2023 12:10 PM CONDOM[employer]IUM ASSOCIATION MANAGER Impression: 1.Successful right and left pulmonary artery thrombectomy with reduction in mean pulomonary artery pressure from 53 to 31 mmHg Follow-up recommendations: 1.Monitor right groin for bleeding. 2.Keep right leg straight for 2 hours. 3.Pursestring in right groin will be removed by IR in 48 hrs. 4.Continue therapeutic anticoagulation. 5.Please obtain post-thrombectomy echocardiogram and bilateral lower extremity venous duplex ultrasound study if not already acquired. 6.Patient will be followed up in the IR and pulmonary PE clinic in 1 month with repeat echo and venous duplex. IDr Dumont, was present during the entire procedure Report dictated by Frederic José MD, PhD (resident services director). > Dictated by Frederic José MD (Yard Demurrage Clerk) 07/21/2023 1:32 AM IMary MD have personally reviewed and interpreted this examination/study. > Interpreting Provider: Mary Dumont MD on 07/22/2023 12:10 PM Narrative 07/22/2023 12:10 PM CON[employer]UM ASSOCIATION MANAGER PROCEDURE: IR TRANSLUM THROMBECTOMY VENOUS, DATE/TIME OF EXAM: 07/21/2023 1:02 AM, LOCATION [facility] COMPARISON: 07/20/2022, [facility] CT PE Protocol. History: Patient with bilateral pulmonary embolism (intermediate high-risk) transferred from [facility] to [facility] for mechanical thrombectomy. Increasing oxygen requirements, tachycardia, elevated troponin, right heart strain on CT and chest heaviness. Operators: 1.Dr. Mary Dumont, Attending Physician 2.Dr. Frederic José, Resident Physician Anesthesia: 1.Local anesthesia - 10 mL of 1% lidocaine Additional Medications: 1.4000 units of intravenous Heparin. Procedure: 1.Ultrasound-guided access of the right common femoral vein. 2.Aircraft Ordnance Technician spot image of the mediastinum. 3.Selective cardiac angiogram of the right atrium and right ventricle evaluate for patent foramen ovale congenital defect. 4.Selective catheterization of the main pulmonary artery and angiogram with 5-Yemeni pigtail catheter. 5.Pressure measurement in the main pulmonary artery. 6.Subselective catheterization of the right pulmonary artery. 7.Mechanical thrombectomy of the left pulmonary artery using 24-Yemeni Inari Flowtriever device with coaxial curved 16-Yemeni Inari Flowtriever device. 8.Subselective catheterization of the left pulmonary artery. 9.Mechanical thrombectomy of the right pulmonary artery using 24 Yemeni Inari Flowtriever device with coaxial curved 16-Yemeni Inari Flowtriever device. 10.Post-thrombectomy Selective catheterization of the main pulmonary artery and angiogram. 11.Post-thrombectomy Pressure measurement in the main pulmonary artery 12.Hemostasis using a purse string suture Fluoroscopic time: 30.6 minutes Contrast: 130 mL of Isovue 300 Procedure in detail: The procedure, risks, and possible complications were explained to the patient in detail, and an informed consent was obtained. The patient was placed supine on the angiographic table. The right groin was prepped and draped in the usual sterile manner. A quartz orientator radiograph of the chest was unremarkable. A qualified radiology nurse monitored the patient s vital signs throughout the procedure. Limited ultrasound of the right groin demonstrated a patent and compressible right common femoral vein. A ordaz scale image was documented. Local anesthesia was provided with 1% lidocaine. Under real time ultrasound guidance, using a micropuncture needle, the right common femoral vein was accessed. The needle entry was documented. Following a series of exchanges, a 6-Yemeni short vascular sheath was placed. Using angled 5-Yemeni pigtail and Bentson wire combination: *angiogram of the right atrium was performed which did not reveal a [id number] cardiac shunt. * The main pulmonary artery was catheterized using a bentson wire given pigtail did not easily cross into pulmonary artery. 8mm balloon was advanced over the wire to ensure wire did not pass through chordae. Through the pigtail catheter, main pulmonary angiogram was performed which demonstrated bilateral upper and lower lobar filling defects with distal main pulmonary artery clot, right greater than left. Main pulmonary artery pressures were elevated measurin/36 mmHg with a mean pressure of 53 mmHg (Reference < 20 mmHg). In view of clot burden and high pressures, we decided to perform a thrombectomy. Thrombectomy: A 0.035 Amplatz guidewire was advanced into the pulmonary arteries. A 8-mm high-pressure balloon was advanced through the right inferior vena cava-Right atrium-right ventricle- main pulmonary-left pulmonary artery; demonstrating guidewire did not interpose between the chordae tendinae, excluding tricuspid valve injury. After serial dilatation, this was exchanged for a 24-Fr Intri sheath. The 24-Yemeni Inari thrombectomy catheter and coaxial curved 16-Yemeni Inari thrombectomy catheter was advanced through the sheath. The left pulmonary artery was catheterized with the Inari thrombectomy catheter. Multiple aspirations were performed with both the 16-Yemeni and 24- Yemeni thrombectomy catheters. A significant amount of clot was removed. FlowSaver system was used to reinfuse non-clotted. A post-aspiration angiogram showed significantly improved clot burden. In a similar fashion, the right pulmonary artery was catheterized with the Inari thrombectomy catheter. Multiple aspirations were performed. A significant amount of clot was removed. Again, FlowSaver system was used to collect non-clotted blood for reinfusion . A post-aspiration angiogram showed significantly improved clot burden. Intraprocedure, serial ACT (activated coagulation time) was performed every 30 minutes requiring an infusion of 4000 units of intravenous Heparin. Post Thrombectomy: Following thrombectomy a pulmonary angiogram was performed which demonstrated significantly decreased clot burden. Post-thrombectomy, main pulmonary artery pressures were significantly reduced, compared to pre-thrombectomy pressures, measurin/5 mmHg ,mean 31 mmHg. All catheters and guidewires were removed. Hemostasis was achieved with a pursestring sutures tensioned with FlowSwitch in the right groin.The patient tolerated the procedure well and was transferred to the ICU in stable condition. There were no immediate complications associated with the procedure. Procedure Note Mary Dumont MD - 07/22/2023 PROCEDURE: IR TRANSLUM THROMBECTOMY VENOUS, DATE/TIME OF EXAM:07/21/2023 1:02 AM, LOCATION [facility] COMPARISON: 07/20/2022, [facility] CT PE Protocol. History: Patient with bilateral pulmonary embolism (intermediatehigh-risk) transferred from [facility] to [facility] for mechanical thrombectomy. Increasingoxygen requirements, tachycardia, elevated troponin, right heart strain on CTand chest heaviness. Operators: 1.Dr. Mary Dumont, Attending Physician 2.Dr. Frederic José, Resident Physician Anesthesia: 1.Local anesthesia - 10 mL of 1% lidocaine Additional Medications: 1.4000 units of intravenous Heparin. Procedure: 1.Ultrasound-guided access of the right common femoral vein. 2.Aircraft Ordnance Technician spot image of the mediastinum. 3.Selective cardiac angiogram of the right atrium and right ventricle evaluate for patent foramen ovale congenital defect. 4.Selective catheterization of the main pulmonary artery and angiogramwith 5-Yemeni pigtail catheter. 5.Pressure measurement in the main pulmonary artery. 6.Subselective catheterization of the right pulmonary artery. 7.Mechanical thrombectomy of the left pulmonary artery using 24-Yemeni Inari Flowtriever device with coaxial curved 16-Yemeni Inari Flowtriever device. 8.Subselective catheterization of the left pulmonary artery. 9.Mechanical thrombectomy of the right pulmonary artery using 24 Yemeni Inari Flowtriever device with coaxial curved 16-Yemeni InariFlowtriever device. 10.Post-thrombectomy Selective catheterization of the main pulmonaryartery and angiogram. 11.Post-thrombectomy Pressure measurement in the main pulmonary artery 12.Hemostasis using a purse string suture Fluoroscopic time: 30.6 minutes Contrast: 130 mL of Isovue 300 Procedure in detail: The procedure, risks, and possible complications were explained to the patient in detail, and an informed consent was obtained. The patient was placed supine on the angiographic table. The right groin was prepped and draped in the usual sterile manner. A quartz orientator radiograph of the chest was unremarkable. A qualified radiology nurse monitored the patient s vital signs throughout the procedure. Limited ultrasound of the right groin demonstrated a patent and compressible right common femoral vein. A ordaz scale image wasdocumented. Local anesthesia was provided with 1% lidocaine. Under real timeultrasound guidance, using a micropuncture needle, the right common femoral veinwas accessed. The needle entry was documented. Following a series ofexchanges, a 6-Yemeni short vascular sheath was placed. Using angled 5-Yemeni pigtail and Bentson wire combination: *angiogram of the right atrium was performed which did not reveal a uklej-hn-ynau cardiac shunt. * The main pulmonary artery was catheterized using a bentson wire given pigtail did not easily cross into pulmonary artery. 8mm balloon was advanced over the wire to ensure wire did not pass through chordae.Through the pigtail catheter, main pulmonary angiogram was performed which demonstrated bilateral upper and lower lobar filling defects with distal main pulmonary artery clot, right greater than left. Main pulmonaryartery pressures were elevated measurin/36 mmHg with a mean pressure of53 mmHg (Reference < 20 mmHg). In view of clot burden and high pressures, we decided to perform a thrombectomy. Thrombectomy: A 0.035 Amplatz guidewire was advanced into the pulmonary arteries. A8-mm high-pressure balloon was advanced through the right inferior vena cava-Right atrium-right ventricle- main pulmonary-left pulmonary artery; demonstrating guidewire did not interpose between the chordae tendinae, excluding tricuspid valve injury. After serial dilatation, this was exchanged for a 24-Fr Intri sheath. The 24-Yemeni Inari thrombectomy catheter and coaxial curved 16-Yemeni Inari thrombectomy catheter was advanced through the sheath. The left pulmonary artery was catheterized with the Inari thrombectomy catheter. Multiple aspirations were performed with both the 16-Frenchand 24- Yemeni thrombectomy catheters. A significant amount of clot was removed. FlowSaver system was used to reinfuse non-clotted. A post-aspiration angiogram showed significantly improved clot burden. In a similar fashion, the right pulmonary artery was catheterized withthe Inari thrombectomy catheter. Multiple aspirations were performed. A significant amount of clot was removed. Again, FlowSaver system was usedto collect non-clotted blood for reinfusion . A post-aspiration angiogram showed significantly improved clot burden. Intraprocedure, serial ACT (activated coagulation time) was performedevery 30 minutes requiring an infusion of 4000 units of intravenous Heparin. Post Thrombectomy: Following thrombectomy a pulmonary angiogram was performed which demonstrated significantly decreased clot burden. Post-thrombectomy,main pulmonary artery pressures were significantly reduced, compared to pre-thrombectomy pressures, measurin/5 mmHg ,mean 31 mmHg. All catheters and guidewires were removed. Hemostasis was achieved witha pursestring sutures tensioned with FlowSwitch in the right groin.The patient tolerated the procedure well and was transferred to the ICU in stable condition. There were no immediate complications associated withthe procedure. Impression: 1.Successful right and left pulmonary artery thrombectomy with reductionin mean pulomonary artery pressure from 53 to 31 mmHg Follow-up recommendations: 1.Monitor right groin for bleeding. 2.Keep right leg straight for 2 hours. 3.Pursestring in right groin will be removed by IR in 48 hrs. 4.Continue therapeutic anticoagulation. 5.Please obtain post-thrombectomy echocardiogram and bilateral lower extremity venous duplex ultrasound study if not already acquired. 6.Patient will be followed up in the IR and pulmonary PE clinic in 1month with repeat echo and venous duplex. IDr Dumont, was present during the entire procedure Report dictated by Frederic José MD, PhD (resident services director). > Dictated by Frederic José MD (Yard Demurrage Clerk) 07/21/2023 1:32AM IMary MD have personally reviewed and interpreted this examination/study. > Interpreting Provider: Mary Dumont MD on 07/22/2023 12:10 PM Jorje Crockett MD IR ORDERABLES * B-TYPE NATRIURETIC PEPTIDE (07/20/2023 9:21 PM CONDOMINIUM ASSOCIATION MANAGER) BNP 98 <100 pg/mL 07/20/2023 10:08 PM CONDOMINIUM ASSOCIATION MANAGER [facility] Comment: A decision threshold of 100 pg/mL has been demonstrated to provide the maximal combination of sensitivity, specificity and predictive value for the diagnosis of congestive heart failure (CHF). Virtually all patients with no evidence of CHF have BNP values less than 100 pg/mL. A BNP value greater than 100 pg/mL is consistent with the diagnosis of CHF in the appropriate clinical setting. In a study of 693 patients (male and female) with diagnosed CHF, the following values were determined based on the NYHA functional classification system: NYHA Functional Class Mean Valule (pg/mL) % >100 pg/mL I 320 58.1 II 432 73.0 III 656 79.0 IV 1635 98.3 Blood BLOOD SPECIMEN / Unknown Venipuncture / Unknown 07/20/2023 9:21 PM CONDOMINIUM ASSOCIATION MANAGER 07/20/2023 9:28 PM CONDOMINIUM ASSOCIATION MANAGER Jorje Crockett MD LAB - CHEMISTRY ORDERABLES Performing Organization Address City/[facility]/ZIP Co de Phone Number [address] [address], [place] [phone] * LACTIC ACID BLOOD (07/20/2023 9:21 PM CONDOMINIUM ASSOCIATION MANAGER) [facility] Lactic Acid-Stat 1.2 <=2.0 mmol/L 07/20/2023 9:48 PM CONDOMINIUM ASSOCIATION MANAGER [facility] Blood BLOOD SPECIMEN / Unknown Venipuncture / Unknown 07/20/2023 9:21 PM CONDOMINIUM ASSOCIATION MANAGER 07/20/2023 9:28 PM CONDOMINIUM ASSOCIATION MANAGER Jorje Crockett MD LAB - CHEMISTRY ORDERABLES Performing Organization Address [facility] Co de Phone Number [address] [address], [place] [phone] * (ABNORMAL) PTT [facility] (07/20/2023 8:49 PM CONDOMINIUM ASSOCIATION MANAGER) [facility] APTT 74.1(H) 23.0 - 38.4 Seconds 07/20/2023 9:14 PM CONDOMINIUM ASSOCIATION MANAGER [facility] Comment:Suggested therapeuti c range for full dose I.V. unfractionated heparin therapy for venous thromboembolism is 71 to 109 seconds. Blood BLOOD SPECIMEN / Unknown Venipuncture / Unknown 07/20/2023 8:49 PM CONDOMINIUM ASSOCIATION MANAGER 07/20/2023 8:52 PM CONDOMINIUM ASSOCIATION MANAGER Jorje Crockett MD LAB - COAGULATI ON ORDERABLES Performing Organization Address [facility] Co de Phone Number [address] [address], [place] [phone] * PT-INR [facility] (07/20/2023 8:49 PM CONDOMINIUM ASSOCIATION MANAGER) [facility] PT 14.7 12.1 - 14.8 Seconds 07/20/2023 9:14 PM CONDOMINIUM ASSOCIATION MANAGER [facility] INR 1.2 See Comment 07/20/2023 9:14 PM CONDOMINIUM ASSOCIATION MANAGER [facility] Comment:The suggested therap eutic range for standard coumadin (warfarin) therapy is an INR of 2.0-3.0. For high-risk patients (Mechanical Mitral Valve Prosthesis, etc.), the suggested prophylactic therapeutic range is an INR of 2.5-3.5. Blood BLOOD SPECIMEN / Unknown Venipuncture / Unknown 07/20/2023 8:49 PM CONDOMINIUM ASSOCIATION MANAGER 07/20/2023 8:52 PM CONDOMINIUM ASSOCIATION MANAGER Jorje Crockett MD LAB - COAGULATI ON ORDERABLES [facility] [address] [place] [address], [facility] [phone] * (ABNORMAL) COMPREHENSIVE METABOLIC PANEL (07/20/2023 8:49 PM [facility]) BUN 13 7 - 26 mg/dL 07/20/2023 9:19 PM [facility] Creatinine 1.18(H) 0.56 - 0.96 mg/dL 07/20/2023 9:19 PM [facility] Sodium 137 136 - 145 mmol/L 07/20/2023 9:19 PM [facility] Potassium 4.2 3.5 - 4.5 mmol/L 07/20/2023 9:19 PM [facility] Chloride 103 98 - 107 mmol/L 07/20/2023 9:19 PM [facility] CO2 25 22 - 29 mmol/L 07/20/2023 9:19 PM [facility] Glucose 106 70 - 115 mg/dL 07/20/2023 9:19 PM [facility] Calcium 8.8 8.4 - 10.2 mg/dL 07/20/2023 9:19 PM [facility] Protein Total 7.0 6.0 - 8.3 g/dL 07/20/2023 9:19 PM [facility] Albumin 3.3(L) 3.4 - 5.0 g/dL 07/20/2023 9:19 PM [facility] Bilirubin Total 1.1 0.2 - 1.2 mg/dL 07/20/2023 9:19 PM [facility] Alkaline Phosphatase 82 40 - 150 U/L 07/20/2023 9:19 PM [facility] ALT 13 5 - 55 U/L 07/20/2023 9:19 PM [facility] AST 18 5 - 34 U/L 07/20/2023 9:19 PM [facility] Anion Gap 9 6 - 16 07/20/2023 9:19 PM [facility] BUN/Creatinine Ratio 11 7 - 23 07/20/2023 9:19 PM [facility] Osmolality Calculated 285 275 - 295 mOsm/kg 07/20/2023 9:19 PM [facility] Albumin/Globulin Ratio 0.9(L) 1.1 - 2.3 07/20/2023 9:19 PM [facility] eGFR by CKD-EPI 50(L) >=90 mL/min/1.7 3 m2 07/20/2023 9:19 PM [facility] Blood BLOOD SPECIMEN / Unknown Venipuncture / Unknown 07/20/2023 8:49 PM CONDOMINIUM ASSOCIATION MANAGER 07/20/2023 8:53 PM [facility] Jorje Crockett MD LAB - CHEMISTRY ORDERABLES [facility] [address] [place] [address], [facility] [phone] Care Teams Taxi Driver Relationship Specialty Start Date End Date Unknown, Provider PCP - General 08/31/24
--- OUTSIDE RECORDS SUMMARY | 2024-10-01 15:49 | XMS_ITS | Clinical Summary ---
Author Organization [facility] [address] Address [address] [place] [address] Care Team Providers Care Surveillance Manager Name Role Phone Asael Casarez MD Primary Care Provider + [phone] Allergies No known active allergies Medications apixaban (ELIQUIS) 5 mg tablet Take 1 tablet (5 mg total) by mouth 2 (two) times a day Active amLODIPine-oniel zepriL (LOTREL) 10-20 mg per capsule Take 1 capsule by mouth daily Active folic acid (FOLVITE) 1 mg tablet Take 1 tablet (1 mg total) by mouth daily Active cyanocobalamin (Vitamin B-12) 50 mcg tabletIndicatio ns:Prevention of Vitamin B12 Deficiency Take 1 tablet (50 mcg total) by mouth daily Active Active Problems Problem Noted Date Diagnosed Date Other pulmonary embolism without acute cor pulmo nale 03/28/2024 Medical History Medical History Date Comments Pulmonary embolism (HCC) Hypertension Family History Medical History Relation Name Comments Cancer Father COPD Mother Relation Name Status Comments Father Mother Social History Tobacco Use Types Packs/Day Years Used Date Smoking Tobacco: Never Smokeless Tobacco: Never Tobacco Cessation:Counseling Given: Not Answered Personal Safety Answer Date Recorded Getting School Help Needed Not on file 10/24 Comments Unknown Sex and Gender Information Value Date Recorded Sex Assigned at Not on file Legal Sex Female 10:37 AM CDT Gender Identity Not on file Sexual Orientation Not on file Obstetrics History Last Filed Vital Signs Vital Sign Reading Time Taken Comments Blood Pressure 138/92 03/28/2024 9:31 AM CDT Pulse 84 03/28/2024 9:31 AM CDT Temperature - - Respiratory Rate - - Oxygen Saturation 98% 03/28/2024 9:31 AM CDT Inhaled Oxygen Concentration - - Weight 103 kg (227 lb) 03/28/2024 9:31 AM CDT Height 177.8 cm (5' 10 ) 03/28/2024 9:31 AM CDT Body Mass Index 32.57 03/28/2024 9:31 AM CDT Plan of Treatment Health Maintenance Due Date Last Done Comments Colon Cancer Screening-Colonoscopy 1950 Depression Screening 1952 Fall Risk Assessment 1950 Hepatitis C Screening 1950 Osteoporosis Screening-Bone Density Scan 1952 DTaP/Tdap/Td Vaccine (1 - Tdap) 10/20/1963 Hepatitis B Screening 1970 Pneumococcal vaccine 65+ (1 of 1 - PCV) 2002 Zoster Vaccine (1 of 2) 2002 Well Visit 65+ 2017 Influenza Vaccine (#1) 2024 Breast Cancer Screening-Mammogram 03/12/2025 024 Insurance MEDICARE [employer] Care Teams Surveillance Manager Relationship Specialty Start Date End Date Asael Casarez MD [address] [place], [place] [phone] PCP - General Family Medicine 10/25/23
--- OUTSIDE RECORDS SUMMARY | 2024-10-01 15:49 | XMS_ITS | Referral Summary ---
Author Organization [facility] Address [address] [place] [address] Care Team Providers Care Education Supervisor Name Role Phone Unknown, Provider Primary Care Provider Unavaila ble Source Comments [facility],non-owned Affiliates and Associated Physician Practices is amultiple site organization consisting of ambulatory clinics and hospital sitesin [place], [place], [place] and [place]. This disclosure is being madepursuant to the Care Everywhere program and may not contain all information available regarding this patient. Last updated 18.[facility] Encounters Date Type Department Care Team Description 09/24/2024 Travel 09/24/2024 3:00 PM CDT - 09/24/2024 11:59 PM CDT Hospital Encounter [facility] [address] [place] [address] Jose Dominguez MD Discharge Disposition: Home or Self Care 08/31/2024 Travel 08/31/2024 11:00 AM ICT SYSTEMS TEST ENGINEER Office Visit [facility] - Pulmonology [address] [place] [phone] Jose Dominguez MD History of pulmonary embolism (Primary Dx); Acute deep vein thrombosis (DVT) of right peroneal vein (HCC) 08/13/2024 1:10 PM ICT SYSTEMS TEST ENGINEER - 08/13/2024 11:59 PM ICT SYSTEMS TEST ENGINEER Hospital Encounter [facility] [address] [place] [address] Unknown, Provider Discharge Disposition: Home or Self Care 07/19/2024 Telephone [facility] - Pulmonology [address] [place] [address], [place] [address] Jose Dominguez MD Scheduling Outreach (Pt asked to reschedule appt due to weather) from Last 3 Months Allergies No known active allergies Medications * Be aware that medications may not be up to date on this document. Alwaysverify current medications with the patient. Medication Sig Dispensed Refills Start Date End Date Status amLODIPine-benazepri l (Lotrel) 10-20 MG capsule Take 1 (one) capsule by mouth once daily 06/22/2023 Active apixaban (Eliquis) 5 MG tabletIndications:Ot her acute pulmonary embolism with acute cor pulmonale (HCC),Acute deep vein thrombosis (DVT) of right peroneal vein (HCC) Take 1 (one) tablet by mouth 2 times daily for 90 days 180 tablet 09/23/2023 Active folic acid (Folvite) 1 MG tablet Take 1 (one) tablet by mouth once daily 12/14/2023 Active Active Problems Problem Noted Date Diagnosed Date Elevated serum creatinine 07/21/2023 Acute pulmonary embolism with acute cor pulmonal e 07/21/2023 Acute deep vein thrombosis (DVT) of peroneal vei n 07/21/2023 INOCENCIA (acute kidney injury) 07/21/2023 Subacute massive pulmonary embolism 07/20/2023 HTN (hypertension) 07/20/2023 Family history of familial adenomatous polyposis 07/20/2023 Thrombocytopenia 07/20/2023 Immunizations Name Administration Dates Next Due INFLUENZA VACCINE, ADJUVANTE D, QUADR. (FLUAD QUADRIVALENT; 65Y+) (AIIV4) 07/23/2023(Deferred: Patient Refused) Social History Tobacco Use Types Packs/Day Years [...] and heating? Not hard at all 07/21/2023 [facility] [place] [facility] Occupat ional Health - Occupational Stress [...] place to sleep or slept in a fpc (including now)? No 07/21/2023 Sex and Gender Information Value Date Recorded Sex Assigned at Not on file Gender Identity Not on file Sexual Orientation Not on file Last Filed Vital Signs Vital Sign Reading Time Taken Comments Blood Pressure 147/85 08/31/2024 11:05 AM ICT SYSTEMS TEST ENGINEER Pulse 81 08/31/2024 11:05 AM ICT SYSTEMS TEST ENGINEER Temperature 36.7 C (98.1 F) 09/23/2023 9:41 AM ICT SYSTEMS TEST ENGINEER Respiratory Rate 17 08/31/2024 11:0 5 AM ICT SYSTEMS TEST ENGINEER Oxygen Saturation 98% 08/31/2024 11: 05 AM ICT SYSTEMS TEST ENGINEER Inhaled Oxygen Concentration - - Weight 107.3 kg (236 lb 9.6 oz) 025 11:05 AM ICT SYSTEMS TEST ENGINEER Height 177.8 cm (5' 10 ) 08/31/2024 11: 05 AM ICT SYSTEMS TEST ENGINEER Body Mass Index 33.95 08/31/2024 11:05 AM ICT SYSTEMS TEST ENGINEER Functional Status Functional Status Response Date of Assess ment Is person deaf or have serious hearing difficult y? No 07/21/2023 Is person blind or have serious difficulty seein g? No 07/21/2023 Does person have serious dif ficulty walking/climbing stairs? No 07/21/2023 Does person have difficulty dressing/bathing? No 07/21/2023 Does person have difficulty doing errands alone? No 07/21/2023 Cognitive Status Response Date of Assessm ent Does person have difficulty concentrating/remembering/making decisions? No 07/21/2023 Plan of Treatment Upcoming Encounters Date Type Department Care Team (Late st Contact Info) Description 03/08/2025 11:00 AM CDT Office Visit [facility] - Pulmonology [address] [place] [address], [place] [address] Jose Dominguez MD [address] [place] [address] DIV OF PULMONARY/[place] [address] Goals Goal Patient Goal Type Associated Problems Recent Progress Patient-Stated? Author Medication Management General On track( 024 9:49 AM ICT SYSTEMS TEST ENGINEER) Philippe Salazar, RN Note: Expected end date: Interventions: Take all medications as prescribed Let your doctor know right away about any changes in your medications Make sure to request a refill of your medication at least one week prior to your last dose Procedures Procedure Name Priority Date/Time Associated Diagnosis Comments VAS BILATERAL VENOUS DUPLEX LE Routine 09/24/2024 3:35 PM CDT Acute deep vein thrombosis (DVT) of right peroneal vein (HCC) SIX MINUTE WALK Routine 08/13/2024 4:47 PM ICT SYSTEMS TEST ENGINEER History of pulmonary embolism BASIC METABOLIC PANEL (CALCIUM TOTAL) AM Draw 07/23/2023 5:17 AM ICT SYSTEMS TEST ENGINEER from Last 3 Months or Most Recently Relevant to Health Maintenance Results * VAS Bilateral Venous Duplex Le (09/24/2024 3:35 PM CDT) Anatomical Region Laterality Modality Lower Extremity Intravascular Ul trasound 09/24/2024 3:12 PM CDT Narrative Procedure Note Jayjay Lucero MD - 09/25/2024 Jose Dominguez MD VASCULAR LAB ORDERAB LES * Six Minute Walk Test [facility] (08/13/2024 4:47 PM ICT SYSTEMS TEST ENGINEER) Impressions Yeni Wiseman MD - 08/13/2024 4:47 PM ICT SYSTEMS TEST ENGINEER [facility] DEPARTMENT OF PULMONARY, CRITICAL CARE, AND [...] of Pulmonary, Critical Care, and Sleep Medicine [facility] [employer] I have personally reviewed pulmonary function test data and finding. I concur with fellow's note. Yeni Wiseman MD Jorje Crockett MD RESPIRATORY [facility] ORDERABLES * (ABNORMAL) BASIC METABOLIC PANEL (CALCIUM TOTAL) (07/23/2023 5:17 AM ICT SYSTEMS TEST ENGINEER) BUN 16 7 - 26 mg/dL 07/23/2023 6:00 AM [facility] Creatinine 0.94 0.56 - 0.96 mg/dL 07/23/2023 6:00 AM [facility] Sodium 137 136 - 145 mmol/L 07/23/2023 6:00 AM [facility] Potassium 4.8(H) 3.5 - 4.5 mmol/L 07/23/2023 6:[address] [facility] Chloride 107 98 - 107 mmol/L 07/23/2023 6:[address] [facility] CO2 25 22 - 29 mmol/L 07/23/2023 6:[address] [facility] Glucose 101 70 - 115 mg/dL 07/23/2023 6:[address] [facility] Calcium 8.7 8.4 - 10.2 mg/dL 07/23/2023 6:[address] [facility] Anion Gap 5(L) 6 - 16 07/23/2023 6:[address] [facility] BUN/Creatinine Ratio 17 7 - 23 07/23/2023 6:[address] [facility] Osmolality Calculated 285 275 - 295 mOsm/kg 07/23/2023 6:[address] [facility] eGFR by CKD-EPI 65(L) >=90 mL/min/1.7 3 m2 07/23/2023 6:[address] [facility] Blood BLOOD SPECIMEN / Unknown Venipuncture / Unknown 07/23/2023 5:17 AM ICT SYSTEMS TEST ENGINEER 07/23/2023 5:29 AM [facility] Jorje Crockett MD LAB - CHEMISTRY ORDERABLES Performing Organization Address City/State/[facility] Co de Phone Number [facility] [address] [place] [address], [facility] [phone] from Last 3 Months or Most Recently Relevant to Health Maintenance Advance Directives * Full Code (Latest Code Status on File) Date Activated Date Inactivated Comments 07/20/2023 8:15 PM 07/23/2023 5:23 PM Care Teams Education Supervisor Relationship Specialty Start Date End Date Unknown, Provider PCP - General 08/31/24
--- OUTSIDE RECORDS SUMMARY | 2024-10-01 15:49 | XMS_ITS | Clinical Summary ---
Author Organization [facility] Address [address] [place] [address] Care Team Providers Care General Service Technician Name Role Phone Unknown, Provider Primary Care Provider Unavaila ble Source Comments [facility],non-owned Affiliates and Associated Physician Practices is amultiple site organization consisting of ambulatory clinics and hospital sitesin [place], [place], [place]. This disclosure is being madepursuant to the Care Everywhere program and may not contain all information available regarding this patient. Last updated 18.[employer] [facility] Allergies No known active allergies Medications * [...] of familial adenomatous polyposis 07/20/2023 Thrombocytopenia 07/20/2023 Encounters Date Type Department Care Team Description 09/24/2024 3:00 PM CDT - 09/24/2024 11:59 PM CDT Hospital Encounter [facility] VASCULAR US [address] [place] [address] Jose Dominguez MD Discharge Disposition: Home or Self Care 09/24/2024 Travel 08/31/2024 11:00 AM ORTHODONTIST ASSISTANT Office Visit [facility] - Pulmonology [address] [place] [address], [place] [address] Jose Dominguez MD History of pulmonary embolism (Primary Dx); Acute deep vein thrombosis (DVT) of right peroneal vein (HCC) 08/31/2024 Travel 08/13/2024 1:10 PM ORTHODONTIST ASSISTANT - 08/13/2024 11:59 PM ORTHODONTIST ASSISTANT Hospital Encounter [facility] PFT [address] [place] [address] Unknown, Provider Discharge Disposition: Home or Self Care 07/19/2024 Telephone [facility] - Pulmonology [address] [place] [phone] Jose Dominguez MD Scheduling Outreach (Pt asked to reschedule appt due to weather) from Last 3 Months Immunizations Name Administration Dates Next Due INFLUENZA VACCINE, ADJUVANTE D, QUADR. (FLUAD QUADRIVALENT; 65Y+) (AIIV4) 07/23/2023(Deferred: Patient Refused) Family History Medical History Relation Name Comments Cancer - Colon Father Relation Name Status Comments Father Social History Tobacco Use Types Packs/Day Years [...] and heating? Not hard at all 07/21/2023 [facility] [place] of Occupat ional Health - Occupational Stress [...] place to sleep or slept in a mcc (including now)? No 07/21/2023 Sex and Gender Information Value Date Recorded Sex Assigned at Not on file Gender Identity Not on file Sexual Orientation Not on file Last Filed Vital Signs Vital Sign Reading Time Taken Comments Blood Pressure 147/85 08/31/2024 11:05 AM ORTHODONTIST ASSISTANT Pulse 81 08/31/2024 11:05 AM ORTHODONTIST ASSISTANT Temperature 36.7 C (98.1 F) 09/23/2023 9:41 AM ORTHODONTIST ASSISTANT Respiratory Rate 17 08/31/2024 11:0 5 AM ORTHODONTIST ASSISTANT Oxygen Saturation 98% 08/31/2024 11: 05 AM ORTHODONTIST ASSISTANT Inhaled Oxygen Concentration - - Weight 107.3 kg (236 lb 9.6 oz) 025 11:05 AM ORTHODONTIST ASSISTANT Height 177.8 cm (5' 10 ) 08/31/2024 11: 05 AM ORTHODONTIST ASSISTANT Body Mass Index 33.95 08/31/2024 11:05 AM ORTHODONTIST ASSISTANT Plan of Treatment Upcoming Encounters Date Type Department Care Team (Late st Contact Info) Description 03/08/2025 11:00 AM CDT Office Visit [facility] - Pulmonology [address] [facility] [facility], [place] [address] Jose Dominguez MD [facility] 2L DIV OF PULMONARY/[place] [address] Health Maintenance Due Date Last Done Comments BONE DENSITY TESTING 1952 COLOGUARD (AGES 45-75) - COLON CA SCREENING 1952 COLON MONITORING 1952 COLONOSCOPY - COLON CA SCREENING 1952 CT COLONOGRAPHY - COLON CA SCREENING 1952 Colorectal Cancer Screening 1952 FIT - COLON CA SCREENING 1952 FLEX SIG - COLON CA SCREENING 1950 MAMMOGRAM 1950 MEDICARE AWV 12 MONTHS 1952 HEPATITIS C SCREENING 10/15/1970 DTAP/TDAP/TD VACCINES (1 - Tdap) 10/20/1971 PNEUMOCOCCAL VACCINE 50+ (1 of 1 - PCV) 2002 ZOSTER VACCINE (1 of 2) 2002 Respiratory Syncytial Virus (RSV) Vaccine Pt: or over 60 yrs (1 - Risk 60-74 years 1-dose series) 2012 COVID-19 VACCINE ( - season) 2024 INFLUENZA VACCINE (#1) 2024 DEPRESSION SCREENING 07/18/2024 SCREENING FOR DIABETES 07/23/2026 , 07/22/2023, 07/21/2023, Additional history exists LIPID TESTING 03/28/2029 03/28/2024 HEPATITIS B VACCINE Aged Out No longe r eligible based on patient's age to complete this topic HIB VACCINE Aged Out No longer eligi ble based on patient's age to complete this topic HPV VACCINE Aged Out No longer eligi ble based on patient's age to complete this topic MENINGOCOCCAL (Group B) VACCINE SHARED DECISION-MAKING Aged Out No longer eligible based on patient's age to complete this topic MENINGOCOCCAL GROUPS A/C/Y/W VACCINE Aged Out No longer eligible based on patient's age to complete this topic Goals Goal Patient Goal Type Associated Problems Recent Progress Patient-Stated? Author Medication Management General On track( 024 9:49 AM ORTHODONTIST ASSISTANT) Philippe Salazar, RN Note: Expected end date: [...] SIX MINUTE WALK Routine 08/13/2024 4:47 PM ORTHODONTIST ASSISTANT History of pulmonary embolism BASIC METABOLIC PANEL (CALCIUM TOTAL) AM Draw 07/23/2023 5:17 AM ORTHODONTIST ASSISTANT from Last 3 Months or Most Recently Relevant to Health Maintenance Results * VAS Bilateral Venous Duplex Le (09/24/2024 3:35 PM CDT) Anatomical Region Laterality Modality Lower Extremity Intravascular Ul trasound 09/24/2024 3:12 PM CDT Narrative Procedure Note Jayjay Lucero MD - 09/25/2024 Jose Dominguez MD VASCULAR LAB ORDERAB LES * Six Minute Walk Test [facility] PFT Lab (08/13/2024 4:47 PM ORTHODONTIST ASSISTANT) Impressions Yeni Wiseman MD - 08/13/2024 4:47 PM ORTHODONTIST ASSISTANT [facility] DEPARTMENT OF PULMONARY, CRITICAL CARE, [...] of Pulmonary, Critical Care, and Sleep Medicine [facility] I have personally reviewed pulmonary function test data and finding. I concur with fellow's note. Yeni Wiseman MD Jorje Crockett MD RESPIRATORY THE RAPY ORDERABLES * (ABNORMAL) BASIC METABOLIC PANEL (CALCIUM TOTAL) (07/23/2023 5:17 AM [facility]) BUN 16 7 - 26 mg/dL 07/23/2023 6:00 AM [facility] Creatinine 0.94 0.56 - 0.96 mg/dL 07/23/2023 6:00 AM [facility] Sodium 137 136 - 145 mmol/L 07/23/2023 6:00 AM [facility] Potassium 4.8(H) 3.5 - 4.5 mmol/L 07/23/2023 6:00 AM [facility] Chloride 107 98 - 107 mmol/L 07/23/2023 6:00 AM [facility] CO2 25 22 - 29 mmol/L 07/23/2023 6:00 AM [facility] Glucose 101 70 - 115 mg/dL 07/23/2023 6:00 AM [facility] Calcium 8.7 8.4 - 10.2 mg/dL 07/23/2023 6:00 AM [facility] Anion Gap 5(L) 6 - 16 07/23/2023 6:00 AM [facility] BUN/Creatinine Ratio 17 7 - 23 07/23/2023 6:00 AM [facility] Osmolality Calculated 285 275 - 295 mOsm/kg 07/23/2023 6:00 AM [facility] eGFR by CKD-EPI 65(L) >=90 mL/min/1.7 3 m2 07/23/2023 6:00 AM ORTHODONTIST ASSISTANT [facility] LABORATORY [facility] Blood BLOOD SPECIMEN / Unknown Venipuncture / Unknown 07/23/2023 5:17 AM ORTHODONTIST ASSISTANT 07/23/2023 5:29 AM ORTHODONTIST ASSISTANT Jorje Crockett MD LAB - CHEMISTRY ORDERABLES [facility] [address] [place] [address], [facility] [phone] from Last 3 Months or Most Recently Relevant to Health Maintenance Advance Directives * Full Code (Latest Code Status on File) Date Activated Date Inactivated Comments 07/20/2023 8:15 PM 07/23/2023 5:23 PM Care Teams General Service Technician Relationship Specialty Start Date End Date Unknown, Provider PCP - General 08/31/24
--- OUTSIDE RECORDS SUMMARY | 2024-10-01 15:49 | XMS_ITS | Referral Summary ---
Author Organization [facility] [address] Address [address] [place] [address] Care Team Providers Care Pastry Finisher Name Role Phone Asael Casarez MD Primary Care Provider [phone] Allergies No known active allergies Medications apixaban [...] embolism without acute cor pulmo nale 03/28/2024 Social History Tobacco Use Types Packs/Day Years [...] 03/28/2024 9:31 AM CDT Plan of Treatment Not on file Insurance MEDICARE [employer] Care Teams Pastry Finisher Relationship Specialty Start Date End Date Asael Casarez MD [address] [place] [address] PCP - General Family Medicine 10/25/23
[2024-10-01 16:45] LABS: Anion Gap 6 mmol/L (4-12); Blood Urea Nitrogen 20 mg/dL (7-17); Calcium 8.9 mg/dL (8.4-10.2); Carbon Dioxide 28 mmol/L (22-30); Chloride 100 mmol/L (98-107); Estimated Glomerular Filt Rate 48; Glucose 102 mg/dL (65-110); Potassium 4.5 mmol/L (3.4-5.0); Sodium 134 mmol/L (137-145)
[2024-10-01 17:53] LABS: Folic Acid > 20.0 ng/mL (2.76->20)
[2024-10-03 16:03] LABS: Homocysteine 9.1 umol/L (<10.4)
== END 2024-10-01 13:18 | disposition home or self-care (01) ==
PROVIDERS: PCP Family Medicine; Visit Provider Internal Medicine Hematology & Oncology
DX: I26.99 Other pulmonary embolism without acute cor pulmonale (principal)
CPT/HCPCS: 36415; 80048; 82607; 82746; 83090; 85025

== ENCOUNTER 2025-04-02 14:04 | Outpatient (CLI) | payer MEDICARE, SELFPAY ==
[2025-04-02 14:31] LABS: Hematocrit 37.9 % (37.0-47.0); Hemoglobin 12.7 g/dL (12.0-15.0); Immature Granulocyte Percent A 0.3 % (0-0.5); Lymphocytes Absolute Auto 1.63 K/mm3 (0.9-3.2); Mean Corpuscular HGB Conc 33.5 g/dl (32-36); Mean Corpuscular Hemoglobin 31.4 pg (26-34); Mean Corpuscular Volume 93.6 fl (80-100); Nucleated Red Blood Cells Absolute Auto 0.000 K/mm3 (0.0-0.012); Nucleated Red Blood Cells Perc 0.0 % (0.0-0.2); Platelet Count Result 196 k/mm3 (150-375); Red Blood Count 4.05 M/mm3 (4.2-5.4); White Blood Count 6.4 K/mm3 (4.5-10.0)
--- OUTSIDE RECORDS SUMMARY | 2025-04-02 15:46 | XMS_ITS | Clinical Summary ---
Author Organization [facility] Address [address] [place] [address] Care Team Providers Care Business Editor Name Role Phone Unknown, Provider Primary Care Provider Unavaila ble Source Comments [facility],non-owned Affiliates and Associated Physician Practices is amultiple site organization consisting of ambulatory clinics and hospital sitesin [place], [place], [place]. This disclosure is being madepursuant to the Care Everywhere program and may not contain all information available regarding this patient. Last updated 18.[facility] Allergies No known active allergies Medications * Be aware that medications may not be up to date on this document. Alwaysverify current medications with the patient. amLODIPine-oniel zepril (Lotrel) 10-20 MG capsule Take 1 (one) capsule by mouth once daily 06/22/2023 Active apixaban (Eliquis) 5 MG tabletIndicatio ns:Other acute pulmonary embolism with acute cor pulmonale [...] familial adenomatous polyposis 07/20/2023 Thrombocytopenia 07/20/2023 Immunizations Immunization Administration Dates Next Due INFLUENZA VACCINE, ADJUVANTE [...] and heating? Not hard at all 07/21/2023 [facility] [place] of Occupat ional Health - Occupational Stress [...] place to sleep or slept in a long-term (including now)? No 07/21/2023 Comments Unknown Sex and Gender Information Value Date Recorded Sex Assigned at Not on file Legal Sex Female 12:00 PM LEAN MANUFACTURING SPECIALIST Gender Identity Not on file Sexual Orientation Not on file Last Filed Vital Signs Vital Sign Reading Time Taken Comments Blood Pressure 147/85 08/31/2024 11:05 AM LEAN MANUFACTURING SPECIALIST Pulse 81 08/31/2024 11:05 AM LEAN MANUFACTURING SPECIALIST Temperature 36.7 C (98.1 F) 09/23/2023 9:41 AM LEAN MANUFACTURING SPECIALIST Respiratory Rate 17 08/31/2024 11:0 5 AM LEAN MANUFACTURING SPECIALIST Oxygen Saturation 98% 08/31/2024 11: 05 AM LEAN MANUFACTURING SPECIALIST Inhaled Oxygen Concentration - - Weight 107.3 kg (236 lb 9.6 oz) 025 11:05 AM LEAN MANUFACTURING SPECIALIST Height 177.8 cm (5' 10) 08/31/2024 11: 05 AM LEAN MANUFACTURING SPECIALIST Body Mass Index 33.95 08/31/2024 11:05 AM LEAN MANUFACTURING SPECIALIST Plan of Treatment Upcoming Encounters Date Type Department Care Team (Late st Contact Info) Description 04/12/2025 11:00 AM CDT Office Visit [facility] - Pulmonology [address] [place] [address], [place] [phone] Jose Dominguez MD [address] [place] [address] DIV OF PULMONARY/[place] [phone] Health Maintenance Due Date Last Done Comments [...] - Risk 60-74 years 1-dose series) 2012 DEPRESSION SCREENING 07/18/2024 COVID-19 VACCINE (1 - 2023- season) 2025 INFLUENZA VACCINE (#1) 2025 SCREENING FOR DIABETES 07/23/2026 , 07/22/2023, 07/21/2023, [...] Management General On track( 024 9:49 AM LEAN MANUFACTURING SPECIALIST) Philippe Salazar, RN Note: Expected end date: Interventions: Take all medications as prescribed Let your doctor know right away about any changes in your medications Make sure to request a refill of your medication at least one week prior to your last dose Procedures Procedure Name Priority Date/Time Associated Diagnosis Comments BASIC METABOLIC PANEL (CALCIUM TOTAL) AM Draw 07/23/2023 5:17 AM LEAN MANUFACTURING SPECIALIST from Last 3 Months or Most Recently Relevant to Health Maintenance Results * (ABNORMAL) BASIC METABOLIC PANEL (CALCIUM TOTAL) (07/23/2023 5:17 AM LEAN MANUFACTURING SPECIALIST) BUN 16 7 - 26 mg/dL 07/23/2023 6:00 AM [facility] Creatinine 0.94 0.56 - 0.96 mg/dL 07/23/2023 6:00 AM [facility] Sodium 137 136 - 145 mmol/L 07/23/2023 6:00 AM [facility] Potassium 4.8(H) 3.5 - 4.5 mmol/L 07/23/2023 6:00 AM [facility] Chloride 107 98 - 107 mmol/L 07/23/2023 6:00 AM [facility] CO2 25 22 - 29 mmol/L 07/23/2023 6:00 AM [facility] Glucose 101 70 - 115 mg/dL 07/23/2023 6:00 AM [facility] Calcium 8.7 8.4 - 10.2 mg/dL 07/23/2023 6:00 AM [facility] Anion Gap 5(L) 6 - 16 07/23/2023 6:00 AM [facility] BUN/Creatinine Ratio 17 7 - 23 07/23/2023 6:00 AM [facility] Osmolality Calculated 285 275 - 295 mOsm/kg 07/23/2023 6:00 AM [facility] eGFR by CKD-EPI 65(L) >=90 mL/min/1.7 3 m2 07/23/2023 6:00 AM [facility] Blood BLOOD SPECIMEN / Unknown Venipuncture / Unknown 07/23/2023 5:17 AM LEAN MANUFACTURING SPECIALIST 07/23/2023 5:29 AM [facility] Jorje Crockett MD LAB - CHEMISTRY ORDERAB LES Final Result [facility] [address] [place] [address], [place] [phone] from Last 3 Months or Most Recently Relevant to Health Maintenance Insurance MEDICARE [facility] [employer] DEPT [address] [place] [address] Advance Directives * Full Code (Latest Code Status on File) Date Activated Date Inactivated Comments 07/20/2023 8:15 PM 07/23/2023 5:23 PM Care Teams Business Editor Relationship Specialty Start Date End Date Unknown, Provider PCP - General 08/31/24
--- OUTSIDE RECORDS SUMMARY | 2025-04-02 15:46 | XMS_ITS | Clinical Summary ---
Author Organization [facility] [address] Address [address] [place] [address] Care Team Providers Care Head Custodian Name Role Phone Asael Casarez MD Primary Care Provider [phone] Allergies No known active allergies Medications apixaban [...] History Medical History Date Comments Pulmonary embolism Hypertension Family History Medical History Relation Name [...] 9:31 AM CDT Height 177.8 cm (5' 10) 03/28/2024 9:31 AM CDT Body Mass Index [...] of 2) 2002 Well Visit 65+ 2017 Breast Cancer Screening-Mammogram 03/12/2025 024 Influenza Vaccine (#1) 2025 Insurance MEDICARE [facility] Address: [address] [address] [place] [address] [employer] Medical Care Teams Head Custodian Relationship Specialty Start Date End Date Asael Casarez MD [address] [place] [address] PCP - General Family Medicine 10/25/23
--- OUTSIDE RECORDS SUMMARY | 2025-04-02 15:46 | XMS_ITS | Clinical Summary ---
Author Organization [facility] Address [address] [facility] [place] [address] Care Team Providers Care Kinesiology Professor Name Role Phone Asael Casarez MD Primary Care Provider [phone] Allergies No known active allergies Medications amLODIPine-oniel zepril (LOTREL) 10-20 mg capsule Take 1 Capsule by mouth daily. Active cyanocobalamin (VITAMIN B-12) 50 mcg Tablet Take 50 mcg by mouth daily. Active apixaban (Eliquis) 5 mg tablet TAKE 1 TABLET(5 MG) BY MOUTH TWICE DAILY 60 Tablet 5 5 Active folic acid (FOLVITE) 1 mg tablet Take 1 Tablet (1 mg) by mouth daily. 90 Tablet 2 5 Active folic acid (FOLVITE) 1 mg tablet Take 1 Tablet (1 mg) by mouth daily. 90 Tablet 2 4 03/11/20 25 Discontinu ed(Reorder ) Active Problems No known active problems Encounters Date Type Department Care Team Description 03/11/2025 Refill [facility] Oncology and Hematology - [place] [address] [facility] [address] [place] [phone] Pietro Rosenbaum MD 03/06/2025 External Device Data [facility] Provider, Abstract 02/19/2025 External Device Data [facility] Provider, Abstract 01/30/2025 External Device Data [facility] Provider, Abstract 01/30/2025 External Device Data [facility] Provider, Abstract 01/02/2025 External Device Data [facility]STRACTION Provider, Abstract from Last 3 Months Family History Medical [...] Sign Reading Time Taken Comments Blood Pressure 147/81 10/08/2024 2:05 PM CDT Pulse 92 10/08/2024 2:03 PM CDT Temperature 36.7 C (98.1 F) 10/08/2024 2:03 PM CDT Respiratory Rate 15 10/08/2024 2:03 PM CDT Oxygen Saturation 96% 10/08/2024 2:03 PM CDT Inhaled Oxygen Concentration - - Weight 106.2 kg (234 lb 3.2 oz) 10/08/2024 2:03 PM CDT Height 177.8 cm (5' 10) 11/16/2023 1:24 PM CDT Body Mass Index 33.6 11/16/2023 1:24 PM CDT Plan of Treatment Upcoming Encounters Date Type Department Care Team (Late st Contact Info) Description 04/10/2025 2:45 PM CDT Office Visit [facility] Oncology and Hematology [facility] [address] [facility] [facility] [address] [place] [address] Pietro Rosenbaum MD [address] [facility] [address] [place] [address] Health Maintenance Due Date Last [...] 2002 OSTEOPOROSIS SCREENING 2017 INFLUENZA VACCINE (#1) 2025 BREAST CANCER SCREENING 03/29/2025 03/29/20 24, 03/29/2024, 03/12/2024, Additional history exists RSV VACCINE (60+ or ) (1 - 1-dose 75+ series) 10/20/2027 Procedures Procedure Name Priority Date/Time Associated Diagnosis Comments MAMMO BILAT DIAGNOSTIC Routine 03/29/2024 11:15 AM CDT from Last 3 Months or Most Recently Relevant to Health Maintenance Results * MAMMO BILAT DIAGNOSTIC (03/29/2024 11:15 AM CDT) Anatomical Region Laterality Modality Breast Bilateral Mammography Pietro Rosenbaum MD MAMMO ORDERABLES Final Result from Last 3 Months or Most Recently Relevant to Health Maintenance Insurance MEDICARE PART A AND B [employer] Care Teams Kinesiology Professor Relationship Specialty Start Date End Date Asael Casarez MD [address] [place] [address] PCP - General Family Practice 10/28/23
[2025-04-02 16:31] LABS: Alanine Aminotransferase 20 U/L (6-35); Albumin Level 3.8 g/dL (3.5-5.1); Alkaline Phosphatase 90 U/L (38-126); Anion Gap 6 mmol/L (4-12); Aspartate Amino Transferase 45 U/L (14-36); Bilirubin,Total 0.7 mg/dL (0.2-1.3); Blood Urea Nitrogen 16 mg/dL (7-17); Calcium 8.7 mg/dL (8.4-10.2); Carbon Dioxide 26 mmol/L (22-30); Chloride 100 mmol/L (98-107); Estimated Glomerular Filt Rate 52; Glucose 95 mg/dL (65-110); Potassium 4.6 mmol/L (3.4-5.0); Sodium 132 mmol/L (137-145); Total Protein 7.2 g/dL (6.3-8.2)
== END 2025-04-02 14:05 | disposition home or self-care (01) ==
PROVIDERS: PCP Family Medicine; Visit Provider Internal Medicine Hematology & Oncology
DX: I26.99 Other pulmonary embolism without acute cor pulmonale (principal)
CPT/HCPCS: 36415; 80053; 83090; 85025

== ENCOUNTER 2025-04-11 09:29 | Outpatient (CLI) | payer MEDICARE, SELFPAY ==
--- OUTSIDE RECORDS SUMMARY | 2025-04-10 14:45 | XMS_ITS | Encounter Summary ---
Author Organization [facility] [facility] Address [id number] [place] [address] Care Team Providers Care Energy Economist Name Role Phone Asael Casarez MD Primary Care Provider [phone] Reason for Visit * Reason Comments Follow Up Encounter Details Date Type Department Care Team (Late st Contact Info) Description 04/10/2025 2:45 PM CDT Office Visit [facility] - [place] [address] [facility] [address] [place] [address] Pietro Rosenbaum MD [address] [facility] [address] [place] [address] Other acute pulmonary embolism without acute cor pulmonale (CMS/HCC) (Primary Dx) Social History Tobacco Use Types Packs/Day Years Used Date Smoking Tobacco: Never Smokeless Tobacco: Never Alcohol Use Standard Drinks/Week Comments Yes 0 (1 standard drink = 0.6 oz pur e alcohol) rarely Comments Unknown Sex and Gender Information Value Date Recorded Sex Assigned at Not on file Legal Sex Female 10:51 AM CDT Gender Identity Not on file Sexual Orientation Not on file documented as of this encounter Last Filed Vital Signs Vital Sign Reading Time Taken Comments Blood Pressure 184/68 04/10/2025 2:26 PM CDT Pulse 74 04/10/2025 2:23 PM CDT Temperature 36 C (96.8 F) 04/10/2025 2:23 PM CDT Respiratory Rate 16 04/10/2025 2:23 PM CDT Oxygen Saturation 92% 04/10/2025 2:23 PM CDT Inhaled Oxygen Concentration - - Weight 104.9 kg (231 lb 3.2 oz) 04/10/2025 2:23 PM CDT Height - - Body Mass Index 33.17 11/16/2023 1:24 PM CDT documented in this encounter Progress Notes * Pietro Rosenbaum MD - 04/10/2025 2:29 PM CDT HEMATOLOGY / ONCOLOGY PROGRESS NOTE Patient Identification: Name: Carolina López Age: 74 y.o. Sex: female : 1950 DIAGNOSIS Hypercoagulable state with diagnosis of unprovoked PE in July 20, 2023. CURRENT TREATMENT Eliquis TREATMENT HISTORY SUBJECTIVE Patient came into the office for follow-up visit. She has been taking Eliquis and tolerating it well. Denies any bleeding and bruising. Denies any chest pain and shortness of breath. Denies any leg pain and swelling. No other new complaints. Review of system Constitutional: Patient did not mention fevers, sweats, denies any tiredness and fatigue, weight and appetite stable HEENT: Patient did not mention sinus congestion, hearing or vision problems Respiratory: Patient did not mention cough, dyspnea, wheeze Cardiovascular: Patient did not mention chest pain, exertional chest pressure/discomfort, nausea, syncope, shortness of breath GI: Patient did not mention constipation, diarrhea, dsyphagia, reflux symptoms, vomiting, melena : Patient did not mention dysuria, frequency, incontinence, urgency Integumentary system: no lymphadenopathy, sweats, flushing Musculoskeletal: Patient not mention: myalgia, arthralgia Neurological: Patient did not mention blurry or disturbed vision, numbness/weakness, dizziness Skin: No lumps, bumps or rashes. 12 point review of system was reviewed Objective: Vital signs in last 24 hours: As per nursing note Exam: HEENT: Atraumatic, external ears normal, nose normal, oropharynx moist, no pharyngeal exudates. no sinus tenderness Neck- normal range of motion, no tenderness, supple Respiratory: No respiratory distress, normal breath sounds, no rales, no wheezing Cardiovascular: Normal rate, normal rhythm, no murmurs, no gallops, no rubs GI: Soft, nondistended, normal bowel sounds, nontender, no splenomegaly, no hepatomegaly, no mass, no rebound, no guarding : No costovertebral angle tenderness Musculoskeletal: No edema, no tenderness, no deformities. Back- no tenderness Integument: Well hydrated, no rash, Digits and nails inspection normal Lymphatic: No lymphadenopathy noted Neurologic: Alert & oriented x 3, CN 2-12 normal, normal motor function, normal sensory function, no focal deficits noted Exam as above PATH LABS Labs from November 15 showed D-dimer of less than 0.27 Labs from November 30 showed beta-2 glycoprotein antibodies negative lupus anticoagulant not detected protein C and S activity normal Antithrombin III normal homocystine level 14.7 Labs from April 10 showed WBC 7.8 hemoglobin 12.6 platelet 203,000 vitamin B12 412 homocystine 9.0 Labs from October 01 showed WBC 6.0 hemoglobin 12.9 platelet 197,000 creatinine 1.1 B12 773 homocystine 9.1 Labs from April 02 showed WBC 6.4 hemoglobin 12.7 platelet 1 96,000 creatinine 1.0 homocystine 9.5 Assessment: Plan: There are no active problems to display for this patient. Hypercoagulable state with likely unprovoked PE diagnosed in July 20, 2023. Patient was sick in June 2023 and diagnosed with pneumonia. Patient also had left lower extremity DVT and was startedon Eliquis. There is a family history of antiphospholipid antibody syndrome in the cousin who suffered a stroke. Hypercoagulable workup showed elevated homocystine level otherwise unremarkable. Prothrombin gene mutation and factor V Leiden mutation was not done due to insurance coverage. There is no evidence of blood clot on my examination. Homocystine level normal. Patient will continue B12 1 mg daily with folic acid along with Eliquis for long-term duration. Follow-up with me in 1 year. Health maintenance. She is going to have mammogram tomorrow. Hypertension. Stable at home. Follow-up in 1 year 04/10/2025 Pietro Rosenbaum MD documented in this encounter Plan of Treatment Scheduled Orders Name Type Priority Associated Diagnoses Orde r Schedule CBC WITH DIFFERENTIAL Lab Stat Other acute pulmonary embolism without acute cor pulmonale (CMS/HCC) Expected: 04/10/2026, Expires: 07/09/2026 COMPREHENSIVE METABOLIC PANEL Lab Stat Other acute pulmonary embolism without acute cor pulmonale (CMS/HCC) Expected: 04/10/2026, Expires: 07/09/2026 VITAMIN B12 AND FOLATE Lab Routine Other acute pulmonary embolism without acute cor pulmonale (CMS/HCC) Expected: 04/10/2026, Expires: 07/09/2026 HOMOCYSTEINE Lab Routine Other acute pulmonary embolism without acute cor pulmonale (CMS/HCC) Expected: 04/10/2026, Expires: 07/09/2026 documented as of this encounter Visit Diagnoses Diagnosis Other acute pulmonary embolism without acute cor pulmonale (CMS/HCC)- Primary documented in this encounter Care Teams Energy Economist Relationship Specialty Start Date End Date Asael Casarez MD [address] [place] [address] PCP - General Family Practice 10/28/23 documented as of this encounter
--- NOTE | ~2025-04-11 | MM_ITS ---
EXAMINATION: MM screening martha BI w nichol HISTORY: Screening TECHNIQUE: Craniocaudal and mediolateral oblique 3-D tomosynthesis images were obtained and synthetic 2-D images were generated. CAD analysis was submitted and interpreted. COMPARISON: 03/12/2024 BREAST PARENCHYMAL COMPOSITION: There are scattered areas of fibroglandular density. FINDINGS: There is no evidence of suspicious mass, calcification, or architectural distortion to suggest malignancy. There has been no suspicious interval change. IMPRESSION: 1. No mammographic evidence of malignancy. Recommend routine screening mammography in one year. BI-RADS Category 2: Benign finding(s) Reviewed, dictated and finalized at location Q. IMPRESSION: 1. No mammographic evidence of malignancy. Recommend routine screening mammogra phy in one year. BI-RADS Category 2: Benign finding(s)
--- OUTSIDE RECORDS SUMMARY | 2025-04-11 10:19 | XMS_ITS | Clinical Summary ---
Author Organization [facility] [employer] Address [address] [place] [address] Care Team Providers Care Clay Burner Name Role Phone Unknown, Provider Primary Care Provider Unavaila ble Source Comments [facility],non-owned Affiliates and Associated Physician Practices is amultiple site organization consisting of ambulatory clinics and hospital sitesin [place], [place], [place] and [place]. This disclosure is being madepursuant to the Care Everywhere program and may not contain all information available regarding this patient. Last updated 18.[facility] Allergies No known active allergies Medications * [...] Encounters Date Type Department Care Team Description 04/08/2025 Results Follow-Up [facility] - Pulmonology [address] [place] [address] Jose Dominguez MD 04/02/2025 Orders Only [facility]monology [address] [place] [address] Jose Dominguez MD from Last 3 Months Immunizations Immunization Administration Dates Next Due INFLUENZA [...] and heating? Not hard at all 07/21/2023 [facility] [place] [facility] Occupat ional Health - Occupational Stress [...] place to sleep or slept in a fci (including now)? No 07/21/2023 Comments Unknown Sex and Gender Information Value Date Recorded Sex Assigned at Not on file Legal Sex Female 12:00 PM SYSTEMS ADMIN Gender Identity Not on file Sexual Orientation Not on file Last Filed Vital Signs Vital Sign Reading Time Taken Comments Blood Pressure 147/85 08/31/2024 11:05 AM SYSTEMS ADMIN Pulse 81 08/31/2024 11:05 AM SYSTEMS ADMIN Temperature 36.7 C (98.1 F) 09/23/2023 9:41 AM SYSTEMS ADMIN Respiratory Rate 17 08/31/2024 11:0 5 AM SYSTEMS ADMIN Oxygen Saturation 98% 08/31/2024 11: 05 AM SYSTEMS ADMIN Inhaled Oxygen Concentration - - Weight 107.3 kg (236 lb 9.6 oz) 025 11:05 AM SYSTEMS ADMIN Height 177.8 cm (5' 10) 08/31/2024 11: 05 AM SYSTEMS ADMIN Body Mass Index 33.95 08/31/2024 11:05 AM SYSTEMS ADMIN Plan of Treatment Upcoming Encounters Date Type Department Care Team (Late st Contact Info) Description 04/12/2025 11:00 AM CDT Office Visit [facility] - Pulmonology [address] [place] [address], [place] [address] [phone] Jose Dominguez MD [address] [place] [address] 2L DIV OF PULMONARY/[place] [phone] Health Maintenance Due Date Last Done Comments [...] Management General On track( 024 9:49 AM SYSTEMS ADMIN) Philippe Salazar, RN Note: Expected end date: Interventions: Take all medications as prescribed Let your doctor know right away about any changes in your medications Make sure to request a refill of your medication at least one week prior to your last dose Procedures Procedure Name Priority Date/Time Associated Diagnosis Comments URINALYSIS W/MICROSCOPIC NO CULTURE 04/02/2025 2:48 PM CDT BASIC METABOLIC PANEL (CALCIUM TOTAL) AM Draw 07/23/2023 5:17 AM SYSTEMS ADMIN from Last 3 Months or Most Recently Relevant to Health Maintenance Results * (ABNORMAL) URINALYSIS W/MICROSCOPIC NO CULTURE (04/02/2025 2:48 PM CDT) Color UA YELLOW YELLOW [facility] Appearance CLEAR CLEAR [facility] Specific [place]ennison UA 1.003 1.001 - 1.035 [facility] pH UA 6.5 5.0 - 8.0 [facility] Glucose UA NEGATIVE NEGATIVE [facility] Bilirubin UA NEGATIVE NEGATIVE [facility] Ketone UA NEGATIVE NEGATIVE [facility] Blood UA TRACE(A) NEGATIVE [facility] Protein UA NEGATIVE NEGATIVE [facility] Nitrite UA NEGATIVE NEGATIVE [facility] Leukocyte UA TRACE(A) NEGATIVE [facility] WBC UA NONE SEEN < OR = 5 /HPF [facility] RBC UA NONE SEEN < OR = 2 /HPF [facility] Epithelial Cell UA NONE SEEN < OR = 5 /HPF [facility] Bacteria UA NONE SEEN NONE SEEN /HPF [facility] Hyaline Casts NONE SEEN NONE SEEN /LPF [facility] Note See Below [facility] Comment: This urine was analyzed for the presence of WBC, RBC, bacteria, casts, and other formed elements. Only those elements seen were reported. Test Performed at: [facility] [id number] [place] [address] MACHO KESSLER MD 04/02/2025 2:48 PM CDT 04/02/2025 2:49 PM CDT us Jose Dominguez MD LAB - URINALYSIS ORDERABLES Myranda marcelino Result [facility] [address] [place] [address] * (ABNORMAL) BASIC METABOLIC PANEL (CALCIUM TOTAL) (07/23/2023 5:17 AM SYSTEMS ADMIN) BUN 16 7 - 26 mg/dL 07/23/2023 6:00 AM SYSTEMS ADMIN [facility] Creatinine 0.94 0.56 - 0.96 mg/dL 07/23/2023 6:00 AM [facility] Sodium 137 136 - 145 mmol/L 07/23/2023 6:00 AM [facility] Potassium 4.8(H) 3.5 - 4.5 mmol/L 07/23/2023 6:00 AM [facility] Chloride 107 98 - 107 mmol/L 07/23/2023 6:00 AM [facility] CO2 25 22 - 29 mmol/L 07/23/2023 6:00 AM [facility] Glucose 101 70 - 115 mg/dL 07/23/2023 6:00 AM [facility] Calcium 8.7 8.4 - 10.2 mg/dL 07/23/2023 6:00 AM [facility] Anion Gap 5(L) 6 - 16 07/23/2023 6:00 AM [facility] BUN/Creatinine Ratio 17 7 - 23 07/23/2023 6:00 AM [facility] Osmolality Calculated 285 275 - 295 mOsm/kg 07/23/2023 6:00 AM [facility] eGFR by CKD-EPI 65(L) >=90 mL/min/1.7 3 m2 07/23/2023 6:00 AM [facility] Blood BLOOD SPECIMEN / Unknown Venipuncture / Unknown 07/23/2023 5:17 AM SYSTEMS ADMIN 07/23/2023 5:29 AM [facility] us Jorje Crockett MD LAB - CHEMISTRY ORDERAB LES Final Result [facility] [address] [place] [address], [facility] [phone] from Last 3 Months or Most Recently Relevant to Health Maintenance Insurance MEDICARE [employer] [address]PT [address] [place] [address] Advance Directives * Full Code (Latest Code Status on File) Date Activated Date Inactivated Comments 07/20/2023 8:15 PM 07/23/2023 5:23 PM Care Teams Clay Burner Relationship Specialty Start Date End Date Unknown, Provider PCP - General 08/31/24
--- OUTSIDE RECORDS SUMMARY | 2025-04-11 10:19 | XMS_ITS | Encounter Summary ---
Author Organization [facility] Address [address] [facility] [place] [address] Care Team Providers Care Scientific Editor Name Role Phone Unknown, Provider Primary Care Provider Unavaila ble Encounter Details Date Type Department Care Team (Late st Contact Info) Description 04/08/2025 Results Follow-Up [facility] Pulmonology [address] [place] [address] Jose Dominguez MD [address] DIV OF PULMONARY/[place] [address] Social History Tobacco Use Types Packs/Day Years Used Date Smoking Tobacco: Never Smokeless Tobacco: Never Alcohol Use Standard Drinks/Week Comments Not Currently [...] and heating? Not hard at all 07/21/2023 [facility] [place] of Occupat ional Health - Occupational Stress [...] place to sleep or slept in a custodial (including now)? No 07/21/2023 Comments Unknown Sex and Gender Information Value Date Recorded Sex Assigned at Not on file Legal Sex Female 12:00 PM DATA PROCESSING CONTROL CLERK Gender Identity Not on file Sexual Orientation Not on file documented as of this encounter Functional Status * Is person deaf or have serious hearing difficulty? Answer Date of Assessment Author No 07/21/2023 3:02 AM Sindi Duncan RN * Is person blind or have serious difficulty seeing? Answer Date of Assessment Author No 07/21/2023 3:02 AM Sindi Duncan RN * Does person have serious difficulty walking/climbing stairs? Answer Date of Assessment Author No 07/21/2023 3:02 AM Sindi Duncan RN * Does person have difficulty dressing/bathing? Answer Date of Assessment Author No 07/21/2023 3:02 AM Sindi Duncan RN * Does person have difficulty doing errands alone? Answer Date of Assessment Author No 07/21/2023 3:02 AM Sindi Duncan RN documented as of this encounter Mental Status * Does person have difficulty concentrating/remembering/making decisions? Answer Entry Date Author No 07/21/2023 3:02 AM DATA PROCESSING CONTROL CLERK Sindi Parra, RN documented in this encounter Plan of Treatment Upcoming Encounters Date Type Department Care Team (Late st Contact Info) Description 04/12/2025 11:00 AM CDT Office Visit [facility] - Pulmonology [address] [facility], [place] [address] Jose Dominguez MD [address] DIV OF PULMONARY/[place] [address] documented as of this encounter Goals Goal Patient Goal Type Associated Problems Recent Progress Patient-Stated? Author Medication Management General On track( 024 9:49 AM DATA PROCESSING CONTROL CLERK) No Philippe Carmen RN Note: Expected end date: Interventions: Take all medications as prescribed Let your doctor know right away about any changes in your medications Make sure to request a refill of your medication at least one week prior to your last dose documented as of this encounter Visit Diagnoses Not on filedocumented in this encounter Care Teams Scientific Editor Relationship Specialty Start Date End Date Unknown, Provider PCP - General 08/31/24 documented as of this encounter
--- OUTSIDE RECORDS SUMMARY | 2025-04-11 10:19 | XMS_ITS | Clinical Summary ---
Author Organization [facility]oss Address [address] [place] [address] Care Team Providers Care Pharmaceutical Assistant Name Role Phone Asael Csaarez MD Primary Care Provider [phone] Allergies No known active allergies Medications amLODIPine-delia azepril (LOTREL) 10-20 mg capsule Take 1 Capsule by mouth daily. Active cyanocobalamin (VITAMIN B-12) 50 mcg Tablet Take 50 mcg by mouth daily. Active carvediloL (COREG) 6.25 mg tablet Take 6.25 mg by mouth 2 times daily. 04/09/20 25 Active apixaban (Eliquis) 5 mg tablet Take 1 Tablet (5 mg) by mouth 2 times daily. 60 Tablet 5 04/10/20 25 Active folic acid (FOLVITE) 1 mg tablet Take 1 Tablet (1 mg) by mouth daily. 90 Tablet 2 04/10/20 25 Active apixaban (Eliquis) 5 mg tablet TAKE 1 TABLET(5 MG) BY MOUTH TWICE DAILY 60 Tablet 5 10/10/19 25 025 Discontinued folic acid (FOLVITE) 1 mg tablet Take 1 Tablet (1 mg) by mouth daily. 90 Tablet 2 03/11/20 25 025 Discontinued(Re order) Eliquis 5 mg tablet TAKE 1 TABLET(5 MG) BY MOUTH TWICE DAILY 60 Tablet 5 04/09/20 25 025 Discontinued(Re order) Active Problems No known active problems Encounters Date Type Department Care Team Description 04/10/2025 2:45 PM CDT Office Visit [facility]ology - [place] [address] [place] [address] Pietro Rosenbaum MD Other acute pulmonary embolism without acute cor pulmonale (CMS/HCC) (Primary Dx) 04/09/2025 External Device Data STL ABSTRACTION Provider, Abstract 04/08/2025 Refill [facility] [address] [place] [address] Pietro Rosenbaum MD 04/04/2025 Orders Only [facility] [address] [facility] [address] [place] [address] Pietro Rosenbaum MD 04/02/2025 External Device Data STL ABSTRACTION Provider, Abstract 03/11/2025 Refill [facility] [address] [place] [address] Pietro Rosenbaum MD 03/06/2025 External Device Data [...] 3.2 oz) 04/10/2025 2:23 PM CDT Height 177.8 cm (5' 10) 11/16/2023 1:24 PM CDT Body Mass Index 33.17 11/16/2023 1:24 PM CDT Plan of Treatment Health Maintenance Due Date Last Done Comments DTAP/TDAP/TD VACCINES (1 - Tdap) 10/20/1971 COLORECTAL SCREENING 1997 Colorectal Cancer Screening [...] Procedure Name Priority Date/Time Associated Diagnosis Comments HOMOCYSTEINE Routine 04/02/2025 11:44 AM CDT COMPREHENSIVE METABOLIC PANEL Routine 04/02/2025 11:33 AM CDT CBC WITH AUTODIFFERENTIAL Routine 2024 11:30 AM CDT MAMMO BILAT DIAGNOSTIC Routine 11:15 AM CDT from Last 3 Months or Most Recently Relevant to Health Maintenance Results * HOMOCYSTEINE (04/02/2025 11:44 AM CDT) Blood us Pietro Rosenbaum MD CHEMISTRY ORDERABLES Final Resu lt * COMPREHENSIVE METABOLIC PANEL (04/02/2025 11:33 AM CDT) Blood us Pietro Rosenbaum MD CHEMISTRY ORDERABLES Final Resu lt * CBC WITH AUTODIFFERENTIAL (04/02/2025 11:30 AM CDT) Blood Pietro Rosenbaum MD HEMATOLOGY ORDERABLES Final Res ult * MAMMO BILAT DIAGNOSTIC (03/29/2024 11:15 AM CDT) Anatomical Region Laterality Modality Breast Bilateral Mammography Pietro Rosenbaum MD MAMMO ORDERABLES Final Result from Last 3 Months or Most Recently Relevant to Health Maintenance Insurance MEDICARE PART A AND B Plated SUPP Care Teams Pharmaceutical Assistant Relationship Specialty Start Date End Date Asael Casarez MD [address] [place] [address] PCP - General Family Practice 10/28/23
--- OUTSIDE RECORDS SUMMARY | 2025-04-11 10:19 | XMS_ITS | Clinical Summary ---
Author Organization [facility] [address] Address [address] [place] [address] Care Team Providers Care Warehouse Hand Name Role Phone Asael Casarez MD Primary Care Provider [phone] Allergies No known active allergies Medications apixaban [...] 024 Influenza Vaccine (#1) 2025 Insurance MEDICARE [employer] Care Teams Warehouse Hand Relationship Specialty Start Date End Date Asael Casarez MD [address] [place] [address] PCP - General Family Medicine 10/25/23
--- OUTSIDE RECORDS SUMMARY | 2025-04-11 10:19 | XMS_ITS | Encounter Summary ---
Author Organization [email or web address] Address [address] [place] [address] Care Team Providers Care Mailing Jogger Name Role Phone Asael Casarez MD Primary Care Provider [phone] Encounter Details Date Type Department Care Team (Late st Contact Info) Description 04/09/2025 External Device Data STL ABSTRACTION Provider, Abstract NO ADDRESS ON FILE Social History Tobacco Use Types Packs/Day Years [...] on file documented as of this encounter Plan of Treatment Not on file documented as of this encounter Visit Diagnoses Not on filedocumented in this encounter Care Teams Mailing Jogger Relationship Specialty Start Date End Date Asael Casarez MD [address] [place] [address] PCP - General Family Practice 10/28/23 documented as of this encounter
== END 2025-04-11 09:30 | disposition home or self-care (01) ==
LOC: ANHFOHIMG 09:31
PROVIDERS: PCP Family Medicine; Visit Provider Internal Medicine Hematology & Oncology
DX: Z12.31 Encounter for screening mammogram for malignant neoplasm of breast (principal)
CPT/HCPCS: 77063; 77067